=== PATIENT | female | born 1945 | race Caucasian/White ===

== ENCOUNTER 2018-06-28 07:30 | Inpatient (IN) | payer MEDICARE ==
--- NOTE | 2018-07-31 15:43 | HP ---
PREOPERATIVE HISTORY AND PHYSICAL: DATE OF ADMISSION: 08/02/18 PROVIDER: Dr. Ursula Black.* (DICTATED BY ROSA ISELA KONG) CHIEF COMPLAINT: Left knee pain. HISTORY OF PRESENT ILLNESS: Nely is a 72-year-old female, who has had greater than 6 months of increasingly worsening left knee pain. She has failed conservative treatment including antiinflammatories, activity modification, and physical therapy without relief of pain. She is interested in surgical intervention for correction of the problem at this point. PAST MEDICAL HISTORY: Hypertension, asthma, osteoarthritis, hypothyroidism, and depression. PAST SURGICAL HISTORY: Hysterectomy and right total knee arthroplasty. She reports no complications with anesthesia. CURRENT MEDICATIONS: 1. Metoprolol tartrate 50 mg 1-1/2 tabs p.o. q. day. 2. Levothyroxine 112 mcg p.o. q. day. 3. Lasix 20 mg 1 p.o. q. day p.r.n. edema. 4. Multivitamin daily. 5. Ventolin HFA as needed. ALLERGIES: MEPERIDINE, TALWIN, PHENERGAN, and ADHESIVE. FAMILY HISTORY: Positive for cancer. SOCIAL HISTORY: She is a retired nurse. She lives with her spouse. She has never smoked. She rarely consumes alcohol. She exercises sporadically. REVIEW OF SYSTEMS: A 14-point review of systems was discussed with the patient. Positive for seasonal allergies, urinary incontinence. All other systems were negative. PHYSICAL EXAMINATION GENERAL: She is a well-developed, well-nourished pleasant female, in no acute distress at rest. She is alert and oriented x3 with appropriate mood and affect. Gait: She ambulates with an antalgic gait favoring the left knee. She walks with slowed shortened steps. There are no obvious balance or coordination deficits. VITAL SIGNS: The patient is 5 feet 4.5 inches, 235 pounds. Blood pressure 142/ 72, pulse 66, respirations 16, and temperature 97.6. HEENT: Normocephalic, atraumatic. Her hearing and vision are grossly intact. NECK: Her trachea is midline. RESPIRATORY: Lungs are clear to auscultation bilaterally. No wheezes, rales, or rhonchi. CARDIOVASCULAR: Regular rate and rhythm. No murmurs, rubs, or gallops. Normal S1, S2. ABDOMEN: Soft, nondistended, nontender. Normal bowel sounds. EXTREMITIES: Left lower extremity, skin is intact without abrasions or open wounds. There are no palpable masses or lymph nodes. She has 2+ pitting edema to the lower leg. She has a hyizqyph-yk-tyalk joint effusion at the knee with tenderness at the medial joint line. She has 15 to 120 degrees of flexion. No varus or valgus instability. She has a varus alignment at the knee. There is no edema or varicosities or hyperreflexia distally. She has 5/5 ankle dorsiflexion and plantar flexion strength. Sensation to light touch is intact. She has a 2+ dorsalis pedis pulse. DIAGNOSTIC STUDIES: Imaging: Multiple views of the patient's left knee showed severe end-stage osteoarthritis with tricompartmental rade-wo-rcms contact. There is medial joint space, lateral joint space, and patellofemoral joint space narrowing with bone contact. There is subchondral sclerosis and osteophyte formation. IMPRESSION: Left knee osteoarthritis. PLAN: The patient is to undergo a left total knee arthroplasty by Dr. Black on 08/02/18. The risks, benefits, and postoperative course were discussed with the patient at length and she would like to proceed. We will use Oxinium for this patient, as she does have a METAL allergy. We will follow up with the patient in the postoperative phase. ROSA ISELA KONG [id number]/CPS #: [id number] MTDHong
[2018-08-01] MEDS ORDERED: Buffered Lidocaine 0.9% SYRIN* 5 ML/SYR SYRINGE INTRADERM ONE (15:55)
[2018-08-02] MEDS ORDERED: Tranexamic Acid 1,000 MG in NS 0.9% 50 ML* (outpatient use) IV SCH ×2
[2018-08-02] MEDS ORDERED: Acetaminophen TAB* 325 MG PO ONE (06:00)
[2018-08-02] MEDS ORDERED: celeCOXIB CAP* 100 MG PO ONE (06:00)
[2018-08-02] MEDS ORDERED: Gabapentin CAP(*) 300 MG PO ONE (06:00)
--- OUTSIDE RECORDS SUMMARY | 2018-08-02 06:33 | XMS REPORT ---
:1945 External Reference #:[id number] Author Organization [employer] Address [address] [place] [address] Phone [phone] Care Team Providers Name Role Phone Cathy Garcia MD Primary Care Physician Unavailable Payers Type Date Identification Numbers Payment Provider Subscriber Commercial Policy Number: [id number] [employer] Nely Vernon PayID: [id number] [address] [place] [address] Medigap Part B Expires: 2018 Policy Number: [facility] Nely Shay [id number] [facility] Saulo PayID: [id number] [address] [address] [place] [address] Problems Description No Information Family History Date Family Member(s) Problem(s) Comments General Diabetes General Heart Disease General Hypertension General Stroke General Cancer General Depression Father Depression Father due to Suicide () Mother Cancer Mother due to Cancer () First Brother Depression Social History Type Date Description Comments Marital Status Significant Other Lives With Male Partner Occupation Retired Cigarette Use Former Cigarette Smoker Cigars Never Smoked Cigars Pipe Never Smoked A Pipe Smokeless Tobacco Never Used Smokeless Tobacco ETOH Use Rarely consumes alcohol Smoking Patient is a former smoker Exercise Type/Frequency Exercises sporadically Allergies, Adverse Reactions, Alerts Date Description Reaction Status Severity Comments 04/30/2018 Demerol active 04/30/2018 Talwin active 04/30/2018 Phenergan active 04/30/2018 Adhesive active Medications Medication Date Status Form Strength Qnty SIG Indications Ordering Provider Metoprolol Active Tablets 50mg Take 1 And Unknown Tartrate 000 1/2 Tablets By Mouth One Time Daily Levothyroxine Active Tablets 100mcg 1 by mouth Unknown Sodium 000 every day Lasix Active Tablets 20mg 1 by mouth Unknown 000 every day as needed Multivitamin Active 1 tab Unknown 000 daily Vital Signs Date Vital Result Comment 07/03/2018 Height 64.5 inches 5'4.50" Weight 228.00 lb Heart Rate 80 /min BP Systolic Sitting 144 mmHg BP Diastolic Sitting 88 mmHg Respiratory Rate 20 /min Pain Level 0 BMI (Body Mass Index) 38.5 kg/m2 04/30/2018 Height 64.5 inches 5'4.50" Weight 235.00 lb Heart Rate 72 /min BP Systolic 124 mmHg BP Diastolic 74 mmHg BMI (Body Mass Index) 39.7 kg/m2 Results Description No Information Procedures Date CPT Code Description Status 03/31/2010 22010 Rad Exam; Both Knees, Standing Ap Completed 03/31/2010 20174 Rad Exam; Pelvis Completed Encounters Type Date Location Provider CPT E/M Dx Office Visit 04/30/2018 [facility] Ursula Black M.D. 17753 M25.562 2:00p [facility] [place] M17.12 M25.462 Office Visit 03/31/2010 3:00p [facility] [place] Tiwari M.D. 05625 755.63 CY[facility]anyMStone 716.96 724.4 Plan of Care Future Appointment(s):07/27/2018 8:30 am - Ursula Black M.D. at [facility] [place]08/02/2018 7:30 am - Ursula Black M.D. at [facility]
--- OUTSIDE RECORDS SUMMARY | 2018-08-02 06:33 | XMS REPORT ---
:1945 External Reference #:[id number] Author Organization [employer] Address [address] [place] [address] [place] [address] Phone [phone] Care Team Providers Name Role Phone Cathy Garcia MD Primary Care Physician Unavailable Payers Type Date Identification Numbers Payment Provider Subscriber Commercial Policy Number: [id number] [employer] Nely Vernon PayID: [id number] [address] [place] [address] Medigap Part B Expires: 2018 Policy Number: [facility] Nely Shay [id number] [facility] Vernon PayID: [id number] [address] [address] [place] [address] Problems Description No Information Family History Date [...] Form Strength Qnty SIG Indications Ordering Provider Commode Bedside 07/27/20 Active Misc 1units as needed Z47.1 Ursula 18 Kevon Black Z96.652 Erica Esqueda (Carlos) 07/27/2018 Active Z47.1 Ursula Black M.D. Z96.652 Metoprolol Tartrate Active Tablets 50mg Take 1 And 1/2 Unknown Tablets By Mouth One Time Daily Levothyroxine Sodium Active Tablets 112mcg 1 by mouth every Unknown day Lasix Active Tablets 20mg 1 by mouth every Unknown day as needed Multivitamin Active 1 tab daily Unknown Vital Signs Date Vital Result Comment 07/27/2018 Height 64.5 inches 5'4.50" Weight 229.00 lb Heart Rate 67 /min BP Systolic 142 mmHg BP Diastolic 72 mmHg Respiratory Rate 16 /min Body Temperature 97.6 F Pain Level 2 BMI (Body Mass Index) 38.7 kg/m2 07/03/2018 Height 64.5 inches 5'4.50" Weight 228.00 [...] Information Procedures Date CPT Code Description Status 07/03/2018 64072 Control Nasal Hemorrhage Anterior Completed 03/31/2010 17613 Rad Exam; Both Knees, Standing Ap Completed 03/31/2010 47381 Rad Exam; Pelvis Completed Encounters Type Date Location Provider CPT E/M Dx Office Visit 07/03/2018 [facility] [place], 70882 R04.0 3:00p [facility] [place] Office Visit 04/30/2018 [facility] Ursula Black M.D. 52930 M25.562 2:00p Of [facility] M17.12 M25.462 Office Visit 03/31/2010 3:00p [facility] [place] Tiwari M.D. 40391 755.63 C[facility] 716.96 724.4 Plan of Care Future Appointment(s):08/13/2018 2:30 pm - Ursula Black M.D. at [facility].08/02/2018 8:00 am - Nigel Harrell PA-C at [facility]A.08/02/2018 8:00 am - ROSA ISELA Berman at [facility]A.08/02/2018 8:00 am - Ursula Black M.D. at [facility]
[2018-08-02] MEDS ORDERED: Gabapentin CAP(*) 100 MG ONE (07:01)
[2018-08-02] MEDS ORDERED: celeCOXIB CAP* 100 MG ONE (07:02)
[2018-08-02] MEDS ORDERED: Acetaminophen TAB* 325 MG ONE (07:02)
[2018-08-02] MEDS ORDERED: ceFAZolin 2 GM in NS PREMIX(*) 2 GM/100 ML BAG IVPB ONE (07:04)
[2018-08-02] MEDS ORDERED: Tranexamic Acid 1,000 MG/10 ML SDV IV ONE (07:04)
[2018-08-02] MEDS ORDERED: ROPIVACAINE 5 MG/ML 30 ML BTL (0.5%) ONE ×2 (07:20→10:35)
[2018-08-02] MEDS ORDERED: Bupivacaine 0.5% SDV PF* 30ML VIAL ONE (07:20)
[2018-08-02] MEDS ORDERED: fentaNYL* 50 MCG/ML 2 ML VIAL (100 MCG VIAL) ONE (07:25)
[2018-08-02] MEDS ORDERED: Midazolam* 1 MG/ML 2 ML VIAL (2 MG) ONE ×2 (07:25)
[2018-08-02] MEDS ORDERED: Bupivacaine-MPF SPINAL* 7.5 MG/ML - 2ML AMP ONE (08:06)
[2018-08-02] MEDS ORDERED: Morphine PF AMP (0.5MG/ML)* 5 MG/10 ML AMP ONE (08:06)
[2018-08-02] MEDS ORDERED: Famotidine IV* 10 MG/ML 2 ML (20 mg) ONE (08:35)
[2018-08-02] MEDS ORDERED: Hetastarch 6% in NS* 500 ML IV ONE (08:35)
[2018-08-02] MEDS ORDERED: Naloxone* 0.4 MG/ML 1 ML VIAL IV PRN ×2 (09:45→09:47)
[2018-08-02] MEDS ORDERED: Levalbuterol 0.63MG/3ML NEB* UNIT OF USE INH PRN (09:45)
[2018-08-02] MEDS ORDERED: fentaNYL* 50 MCG/ML 2 ML VIAL (100 MCG VIAL) IV PRN (09:45)
[2018-08-02] MEDS ORDERED: DiMENhydriNATE IV* 50 MG/ML VIAL IV PUSH PRN (09:45)
[2018-08-02] MEDS ORDERED: PROCHLORPERAZINE INJ 5 MG/ML 2 ML VIAL IV PRN (09:47)
[2018-08-02] MEDS ORDERED: Scopolamine 1.5 mg* PATCH TRANSDERM PRN (09:47)
[2018-08-02] MEDS ORDERED: Ondansetron INJ* 2 MG/ML VIAL IV PRN (09:47)
[2018-08-02] MEDS ORDERED: Acetaminophen TAB* 325 MG PO PRN (09:47)
[2018-08-02] MEDS ORDERED: Nalbuphine* 10 MG/ML 1 ML VIAL IV PRN (09:47)
[2018-08-02] MEDS ORDERED: diPHENhydraMINE IV* 50 MG/ML 1 ml VIAL (BENADRYL) IV PRN (09:47)
[2018-08-02] MEDS ORDERED: Bisacodyl SUPP* 10 MG SUPP PR PRN (11:03)
[2018-08-02] MEDS ORDERED: Magnesium Hydroxide LIQ* 30 ML UDC PO PRN (11:03)
--- NOTE | 2018-08-02 12:06 | RAD ---
INDICATION: Status post total left knee replacement surgery. COMPARISON: Comparison is made with a prior study from April 30, 2018. TECHNIQUE: 2 views of the left knee were obtained. FINDINGS: The patient is status post total left knee replacement surgery. The bones and prostheses are in normal alignment. There is no evidence for loosening. IMPRESSION: STATUS POST TOTAL LEFT KNEE REPLACEMENT SURGERY.
[2018-08-02] MEDS: D5W 1/2 NS 1000 ML BAG* 1,000 ML IV SCH (13:56)
--- NOTE | 2018-08-02 15:39 | PN ---
Progress Note - Progress Note Date of Service: 08/02/18 SOAP: Subjective: [Pt doing well. states she has vomited some. Feels that she does not want any medicine for it at this time. Will ask if it should occur again. Otherwise pain is 0 currently. ] Objective: [A&O x3. +df/pf, NVI distally ] Assessment: [POD 0 - LTKA] Plan: [- PT/OT - Pain medicine available should she desire - Zofran is available should she desire]
[2018-08-02] MEDS: ceFAZolin 1 GM in Dextrose (*) 1 GM/50 ML BAG IVPB SCH ×2 (15:53→23:52)
[2018-08-02] MEDS ORDERED: Warfarin TAB(*) 6 MG PO ONE (17:00)
[2018-08-02] MEDS: Docusate CAP* 100 MG PO SCH (20:46)
[2018-08-02] MEDS: HYDROcodone/ACETAMIN 5-325 MG* 1 TAB PO PRN ×2 (20:46→23:50)
[2018-08-02] MEDS: Magnesium Hydroxide LIQ* 30 ML UDC PO SCH (20:46)
--- NOTE | 2018-08-02 21:10 | CONS ---
CONSULTATION REPORT: DATE OF CONSULT: 08/02/18 PROVIDER: Rachel Younger NP ATTENDING PHYSICIAN: Dr. Mendez (report dictated by Rachel Younger NP). PRIMARY CARE PROVIDER: Dr. Cathy Garcia. REFERRING PHYSICIAN: Dr. Black. REASON FOR CONSULT: Co-medical management post total left knee arthroplasty. HISTORY OF PRESENT ILLNESS: Ms. Vernon is a 72-year-old female with a past medical history of hypertension, asthma, osteoarthritis, hypothyroidism, depression, who underwent an elective left knee arthroplasty with Dr. Black today. [facility] was asked to co-medical manage for her comorbidities. The patient was seen and evaluated in the Postanesthesia Care Unit, where she was found to be alert and oriented x3, in no acute distress. Her partner and daughter are at the bedside. She currently offers no complaints and denies any pain. She reports she takes Lasix p.r.n. for lower extremity ankle edema, in which she reports her last dose was yesterday morning. She felt that her ankles were slightly more edematous yesterday and "wanted to get fluid off prior to surgery; therefore, she took 1 dose of Lasix. She denies a history of congestive heart failure in the past. She reports that she takes metoprolol for her hypertension and has been on this for quite sometime. She does report at home, she notes that her resting heart rate can frequently be in the low 60s. Currently, she denies any pain, fever, chills, nausea, abdominal pain. PAST MEDICAL HISTORY: 1. Hypertension. 2. Asthma. 3. Osteoarthritis. 4. Hypothyroidism. 5. Depression. PAST SURGICAL HISTORY: 1. Hysterectomy. 2. Right total knee arthroplasty. MEDICATIONS: Home medications: 1. Metoprolol tartrate 75 mg p.o. q.p.m. 2. Synthroid 112 mcg p.o. q. day. 3. Lasix 20 mg p.o. daily p.r.n. lower extremity edema. 4. Multivitamin daily. 5. Ventolin HFA p.r.n. Current medications reviewed and appreciated. ALLERGIES: HALAVEN, PHENERGAN, ADHESIVE, and MEPERIDINE. FAMILY HISTORY: Positive for cancer. SOCIAL HISTORY: Denies history of tobacco abuse. Rare alcohol use. 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 She lists her spouse and daughter are her healthcare proxy. REVIEW OF SYSTEMS: A 14-point review of systems was performed. All the pertinent positives and negatives are mentioned in the history of present illness. Otherwise are negative. PHYSICAL EXAM: Vital Signs: Temperature 97.2, heart rate 52, respirations 16, O2 sat 97% on 2 liters nasal cannula, blood pressure 132/79. General Appearance : A 72-year-old female, lying in the PACU bed, alert and oriented x3, in no acute distress, good historian, very pleasant. HEENT: Head is normocephalic, atraumatic. Pupils are equal and reactive to light. Oropharynx is clear. Dry mucous membranes. Neck is supple. Cardiac: S1 and S2. Regular rate and rhythm. No murmur, rub, or gallop appreciated. 1+ pedal ankle edema noted bilaterally. Lungs: Clear to auscultation bilaterally. Good aeration throughout . Abdomen: Obese, soft, nontender, nondistended. Normal bowel sounds throughout. Extremities: Left lower extremity knee is with dressing and Lauro bandage with Cryo unit intact. 2+ DP pulses bilaterally. Neuro: Alert and oriented x3. Sensation to lower extremities is intact to light touch. No focal deficits noted. Speech is clear. Strength: Upper extremity strength is 5/5 and symmetric. ASSESSMENT AND PLAN: Ms. Vernon is a 72-year-old female with a past medical history of osteoarthritis, hypertension, asthma, hypothyroidism, and depression , who underwent a left total knee arthroplasty today with Dr. Black. Hospital Medicine was asked to co-medical manage. 1. Status post left knee arthroplasty. Disposition per Ortho team. 2. Hypertension. Plan to hold metoprolol at this time due to heart rate is in the 50s. This could be secondary to anesthesia; however, the patient does report she notes a low heart rate at home and she battles fatigue and is possible a beta- bill may not be the most appropriate medication for her. Her blood pressure is currently stable. We will add on hydralazine p.r.n. for now. Heart rate should be continued to be monitored and a decision should be made if she should be discharged home on her beta-bill. 3. Lower extremity edema. The patient's last dose of Lasix was yesterday. She was noted to have 1 to 2+ pedal and ankle edema. We will hold Lasix in the postoperative phase and this should be reevaluated tomorrow. 4. Hypothyroidism. Continue Synthroid 112 mcg p.o. daily. 5. Asthma. No signs of acute exacerbation, appears to be stable. Albuterol nebulizers p.r.n. for shortness of breath/wheezing. 6. DVT prophylaxis per Ortho team. Lovenox 40 mg subcu q.24 hours with initiation of Coumadin, which the patient will be discharged home on. 7. Code status. Full code. TIME SPENT: Approximately 30 minutes was spent on this consultation. RACHEL YOUNGER, KAREN [id number]/CPS #: [id number] GORDON
[2018-08-03] MEDS ORDERED: Morphine INJ* 2 MG/ML 1 ML SYRINGE (TWO MG - NEW SYRINGE VERSION) IV PRN (00:22)
[2018-08-03] MEDS ORDERED: oxyCODONE/Acetamin 5/325 MG* TAB PO PRN (00:22)
[2018-08-03] MEDS ORDERED: diPHENhydraMINE IV* 50 MG/ML 1 ml VIAL (BENADRYL) IV PRN (01:47)
[2018-08-03] MEDS ORDERED: Ondansetron INJ* 2 MG/ML VIAL IV PRN (01:47)
[2018-08-03] MEDS: Acetaminophen TAB* 325 MG PO SCH ×3 (02:10→17:06)
[2018-08-03] MEDS: D5W 1/2 NS 1000 ML BAG* 1,000 ML IV SCH (03:39)
[2018-08-03] MEDS: Levothyroxine TAB* 112 MCG TAB PO SCH (05:19)
[2018-08-03] MEDS: oxyCODONE/Acetamin 5/325 MG* TAB PO PRN ×3 (05:19→23:53)
[2018-08-03 06:11] LABS: Hematocrit 34 % (35-47); Hemoglobin 11.6 g/dl (12.0-16.0); Mean Platelet Volume 10.4 um3 (7.4-10.4); Platelet Count 123 10^3/ul (150-450)
[2018-08-03 06:18] LABS: INR 1.29 (0.77-1.02)
[2018-08-03 06:32] LABS: EGFR Non-African American 69.3 (>60)
[2018-08-03] MEDS: Magnesium Hydroxide LIQ* 30 ML UDC PO SCH ×2 (07:12→21:31)
[2018-08-03] MEDS: Vitamin THERAPEUTIC TAB PO SCH (07:15)
[2018-08-03] MEDS: oxyCODONE TAB* 5 MG TAB PO PRN ×3 (07:15→21:31)
[2018-08-03] MEDS: Docusate CAP* 100 MG PO SCH ×2 (07:15→21:31)
--- NOTE | 2018-08-03 08:33 | OP ---
DATE OF OPERATION: 08/02/18 - ROOM #349 DATE OF : 43. SURGEON: Ursula Black MD. LAMINATE FLOOR INSTALLER: ROSA ISELA Moya. Mr. Harrell did help throughout the procedure with preparation of the leg, wound retraction, manipulation of the knee, and wound closure. ANESTHESIOLOGIST: Dr. Araya ANESTHESIA: Spinal. PRE-OP DIAGNOSIS: Severe end-stage degenerative osteoarthritis of the left knee joint. POST-OP DIAGNOSIS: Severe end-stage degenerative osteoarthritis of the left knee joint. OPERATIVE PROCEDURE: Left total knee arthroplasty. TOURNIQUET TIME: 52 minutes. ESTIMATED BLOOD LOSS: 200 cc. SPECIMENS: Bone and cartilage from the left knee joint sent to pathology. COMPLICATIONS: None. HARDWARE USED: This is cemented total knee arthroplasty hardware from [employer]. Two packages of Simplex bone cement. For the femur, a left narrow size 5 femoral component Legion. For the tibia, a left size 4 Nikki II tibial baseplate. For the insert, a 9-mm posterior stabilized articular insert size 3/4. And for the patella, a 32-mm 3-peg all poly patella with 7.5 thickness. BRIEF HISTORY/INDICATIONS: Ms. Vernon is a 72-year-old female with years of increasingly severe left knee pain. Antiinflammatories, intraarticular injections, and physical therapy failed to relieve her pain. Radiographs showed naco-uv-aipo arthritis. Due to continued pain and decreased quality of life, she elected to undergo left total knee arthroplasty. Informed consent was obtained from the patient. She understood the risks of surgery included but were not limited to, bleeding, infection, damage to nearby structures, continued pain, need for further surgery, intraoperative fracture, nerve palsy, hardware failure or loosening, knee stiffness, loss of motion, stroke, heart attack, blood clot, and . She wished to proceed. INTRAOPERATIVE FINDINGS: Intraoperatively, the patient was noted to have severe end-stage arthritis with complete loss of cartilage in the medial patellar femoral compartments. DESCRIPTION OF PROCEDURE: Ms. Vernon was identified in the preanesthesia unit. Her left lower extremity was marked as the correct operative side. Informed consent was signed and placed in the chart. The patient was taken to the operating room and placed under spinal anesthesia. A Chappell catheter was placed. Tourniquet was placed on the left thigh. Left lower extremity was prepped and draped in the usual sterile fashion. Preop time-out was made to correctly identify the patient's side and site. Appropriate perioperative antibiotics were given within one hour of incision. Tourniquet was inflated and total tourniquet time for this procedure was 52 minutes. A midline incision was made with a #10 blade and carried down to the extensor mechanism. A #10 blade was used to make a standard medial parapatellar arthrotomy and patella was subluxed laterally. Electrocautery was used to subperiosteally elevate soft tissue off the superomedial tibia to the mid sagittal plane. The knee was flexed up. The anterior horn of the lateral meniscus and ACL were sharply removed. A drill was used to enter the distal femur. Intramedullary distal femoral cutting erick was placed and pinned on the distal femur. Distal femoral cut was made with an oscillating saw. Next, the external rotation guide was pinned on the distal femur. Distal femur was sized to a size 5. Size 5 multi-cutting jig was pinned on the distal femur. Oscillating saw was used to make the appropriate four chamfer cuts. The PCL was completely released and the tibia was subluxed anteriorly. Extramedullary tibial cutting guide was pinned on the proximal tibia. Oscillating saw was used to make the proximal tibial cut perpendicular to the mechanical axis of the tibia. The bone was carefully removed. The knee was brought out into full extension. The spacer block had good fit with the knee in full extension. There was good medial and lateral ligamentous balancing. Flexion and extension gaps were well balanced. The knee was flexed up. A lamina spreader box operator was placed both medially and laterally. Any remaining meniscus was carefully removed using electrocautery. Curved osteotome was used to remove any posterior osteophytes. Tibial tray and drop erick were placed, and confirmed a satisfactory tibial cut. A left size 5 narrow femoral component was impacted onto the distal femur. This had excellent fit and stability. The box for the posterior stabilized implant was prepared using a reamer and box cut osteotome. Size 4 tibial tray trial with a 9 mm insert trial was placed and the knee taken through a range of motion. The knee had full extension to 130 degrees of flexion. There was satisfactory patellofemoral tracking. The patella was everted. 7 mm of patellar bone and cartilage were carefully removed using an oscillating saw. Patella was sized to a size 32. Three peg holes were drilled to the size 32 guide. A 32 trial patella with 7.5 thickness was placed and the knee was taken through a range of motion. There was satisfactory patellofemoral tracking. All trials were carefully removed. The tibia was subluxed anteriorly and sized to a size 4. Proximal tibia was prepared using a size 4 keel punch. All bony cut surfaces were copiously irrigated with sterile saline and dried. Final implants were cemented into place starting with the tibia, followed by the femur , and lastly the patella. A 9 mm insert trial was placed and the knee was brought out into full extension. Tourniquet was turned down at 52 minutes. Electrocautery was used to obtain meticulous hemostasis. The knee was copiously irrigated with sterile saline. Once the cement had fully cured, the insert trial was removed. Any excess cement was removed from around the implants and hardware. Final insert chosen was a 9 mm posterior stabilized articular insert size 3/4. The insert was locked into position on the tibial tray. The insert was checked and rechecked, and noted to be stable. The knee was once again copiously irrigated with sterile saline. The extensor mechanism was closed using interrupted #1 Vicryl. The rest of the incision was closed in a layered fashion using 0 and 2-0 Vicryl. Skin was closed using running 3-0 nylon suture. Sterile Xeroform, 4x4's, and Webril were used to cover the incision. Lauro wrap and cold pack were placed over this. The patient' s anesthesia was reversed without difficulty. She was taken to the PACU in stable condition. Intended weightbearing will be weightbearing as tolerated. Intended DVT prophylaxis will be Coumadin with a Lovenox bridge. [id number]/[facility] #: [id number] [facility]
[2018-08-03] MEDS: ceFAZolin 1 GM in Dextrose (*) 1 GM/50 ML BAG IVPB SCH (09:09)
[2018-08-03] MEDS: Metoprolol Tartrate TAB* 25 MG PO SCH ×2 (09:09→21:31)
[2018-08-03] MEDS: Enoxaparin(*) 40 MG/0.4 ML SYR SUBCUT SCH (12:05)
[2018-08-03] MEDS ORDERED: Furosemide TAB* 20 MG PO PRN (12:09)
--- NOTE | 2018-08-03 14:20 | PN ---
Subjective Date of Service: 08/03/18 Interval History: Patient is in mild pain which does not get exacerbated significantly by walking. Patient denies dizziness, CP, SOB, N/V, abdominal pain, diarrhea, obstipation, dysuria, or other pain. Patient denies orthostatic dizziness. Patient is feeling generally very well. Family History: Unchanged from Admission Social History: Unchanged from Admission Past Medical History: Unchanged from Admission Objective Active Medications: Acetaminophen (Tylenol Tab*) 650 mg PO Q8H [facility] Last Admin: 08/03/18 10:23 Dose: 650 mg Bisacodyl (Dulcolax Supp*) 10 mg [place] DAILY PRN PRN Reason: constipation Diphenhydramine HCl (Benadryl Iv*) 25 mg IV Q6H PRN PRN Reason: itching Docusate Sodium (Colace Cap*) 100 mg PO BID [facility] Last Admin: 08/03/18 07:15 Dose: 100 mg Enoxaparin Sodium (Lovenox(*)) 40 mg SUBCUT Q24H [facility] Last Admin: 08/03/18 12:05 Dose: 40 mg Furosemide (Lasix Tab*) 20 mg PO QAM PRN PRN Reason: ankle edema Dextrose/Sodium Chloride (D5w 1/2 Ns 1000 Ml Bag*) 1,000 mls @ 75 mls/hr IV PER RATE [facility] Last Admin: 08/03/18 03:39 Dose: 75 mls/hr Lactulose (Lactulose*) 30 ml PO Q6H PRN PRN Reason: constipation Levothyroxine Sodium (Synthroid Tab*) 112 mcg PO 0600 [facility] Last Admin: 08/03/18 05:19 Dose: 112 mcg Magnesium Hydroxide (Milk Of Magnesia Liq*) 30 ml PO BID [facility] Last Admin: 08/03/18 07:12 Dose: Not Given Magnesium Hydroxide (Milk Of Magnesia Liq*) 30 ml PO Q6H PRN PRN Reason: constipation Metoprolol Succinate (Toprol Xl Tab*) 75 mg PO DAILY [facility] Metoprolol Tartrate (Lopressor Tab*) 25 mg PO BID [facility] Stop: 08/03/18 21:01 Last Admin: 08/03/18 09:09 Dose: 25 mg Morphine Sulfate (Morphine Inj ((Syringe))*) 2 mg IV Q2H PRN PRN Reason: PAIN - SEVERE Last Admin: 08/03/18 12:40 Dose: 2 mg Multivitamins (Theragran Tab*) 1 tab PO DAILY [facility] Last Admin: 08/03/18 07:15 Dose: 1 tab Ondansetron HCl (Zofran Inj*) 4 mg IV Q6H PRN PRN Reason: nausea Oxycodone HCl (Roxycodone Tab*) 10 mg PO Q4H PRN PRN Reason: PAIN - SEVERE Last Admin: 08/03/18 11:12 Dose: 10 mg Oxycodone/Acetaminophen (Percocet 5/325 Tab*) 1 tab PO Q4H PRN PRN Reason: PAIN Last Admin: 08/03/18 05:19 Dose: 1 tab Oxycodone/Acetaminophen (Percocet 5/325 Tab*) 2 tab PO Q4H PRN PRN Reason: PAIN Pharmacy Profile Note (Scopolamine Patch Remove*) 1 note PATCH OFF .AFTER 72 HOURS PRN PRN Reason: nausea Scopolamine (Transderm-Scop 1.5 Mg Patch*) 1 patch TRANSDERM Q72H PRN PRN Reason: nausea Vital Signs - 8 hr 08/03/18 08/03/18 08/03/18 07:15 07:28 11:12 Temperature 98.2 F Pulse Rate 72 Respiratory 14 16 16 Rate Blood Pressure 123/52 (mmHg) O2 Sat by Pulse 94 Oximetry 08/03/18 12:40 Temperature Pulse Rate Respiratory 16 Rate Blood Pressure (mmHg) O2 Sat by Pulse Oximetry Oxygen Devices in Use Now: Nasal Cannula Appearance: Patient is a 72yo female who appears stated age and is sitting in the bed in [facility]. Eyes: No Scleral Icterus, PERRLA Ears/Nose/Mouth/Throat: NL Teeth, Lips, Gums, Clear Oropharnyx, Mucous Membranes Moist Neck: NL Appearance and Movements; NL JVP Respiratory: Symmetrical Chest Expansion and Respiratory Effort, Clear to Auscultation Cardiovascular: NL Sounds; No Murmurs; No JVD, RRR, No Edema, - - Ectopic Beats Abdominal: NL Sounds; No Tenderness; No Distention, No Hepatosplenomegaly Lymphatic: No Cervical Adenopathy Extremities: No Edema, No Clubbing, Cyanosis Skin: No Nodules or Sclerosis, - - Left hip incision covered with bulky dressing. Neurological: Alert and Oriented x 3, NL Sensation, NL Muscle Strength and Tone , - - CN II-XII intact. Result Diagrams: 08/03/18 05:31 08/03/18 05:31 Assess/Plan/Problems-Billing Assessment: Patient is a 72yo female with a PMH for HTN, OA who is S/P LTKA and is doing well. Patient had post-operative bradycardia which has resolved. - Patient Problems (1) Post-operative state Current Visit: Yes Status: Acute Code(s): Z98.890 - OTHER SPECIFIED POSTPROCEDURAL STATES SNOMED Code(s): 56509844 Comment: - Management per primary team. - H/H decreased to an expected degree. - Pain management, Bowel Regimen (2) HTN (hypertension) Current Visit: Yes Status: Acute Code(s): I10 - ESSENTIAL (PRIMARY) HYPERTENSION SNOMED Code(s): 30101274 Comment: - Hypertensive postoperative. - Resume metprolol at lower dose today and then resume home dose tomorrow. (3) Bradycardia Current Visit: Yes Status: Acute Code(s): R00.1 - BRADYCARDIA, UNSPECIFIED SNOMED Code(s): 72485408 Comment: - Post-operative. Resolved. Resume metoprolol (4) Asthma Current Visit: Yes Status: Acute Code(s): J45.909 - UNSPECIFIED ASTHMA, UNCOMPLICATED SNOMED Code(s): 341236459 Comment: - Not in acute exacerbation - Continue inhalers PRN (5) Hypothyroidism Current Visit: Yes Status: Acute Code(s): E03.9 - HYPOTHYROIDISM, UNSPECIFIED SNOMED Code(s): 93845876 Comment: - Continue Synthroid (6) Depression Current Visit: Yes Status: Acute Code(s): F32.9 - MAJOR DEPRESSIVE DISORDER , SINGLE EPISODE, UNSPECIFIED SNOMED Code(s): 64666321 Comment: - Euthymic, on no medications - Supportive care (7) DVT prophylaxis Current Visit: Yes Status: Acute Code(s): SXU4251 - SNOMED Code(s): 118881047 Comment: - Lovenox to Coumadin per primary team. (8) Full code status Current Visit: Yes Status: Acute Code(s): Z78.9 - OTHER SPECIFIED HEALTH STATUS SNOMED Code(s): 713075669 Status and Disposition: Inpatient.
[2018-08-03] MEDS ORDERED: Albuterol 2.5 MG/3 ML NEB.SOL* (0.083%) INH PRN (14:26)
--- NOTE | 2018-08-03 14:50 | PN ---
Progress Note - Progress Note Date of Service: 08/03/18 SOAP: Subjective: [Pt was seen today sitting up in chair. Pt states that she is doing very well. She had nausea and vomiting from anesthesia as she expected but these has since passed. She states her pain is well controlled. Denies any chest pain, SOB, nausea or vomiting. ] Objective: [General: A&Ox3, NAD. MSK, LLE: Dressing is c/d/i without surrounding erythema. +df/pf. Calf is soft and non tender. The pts distal extremity is swollen with 2+ pitting edema. PT pulse is 1+ but cap refill of all digits are less than 2 seconds. She is NVI distally. ] Assessment: [POD 1 LTKA ] Plan: [- PT/OT - Continue with GUILLERMO wrap of lower extremity. - Continue with SCDs - Continue with current pain medication - Possible DC on Sun to [facility] monday with [place] [facility]. - INR of 1.29 - Lovenox today, Warfarin of 8mg tonight ]
[2018-08-03] MEDS ORDERED: Warfarin TAB(*) 4 MG PO SCH (17:00)
[2018-08-04] MEDS: oxyCODONE TAB* 5 MG TAB PO PRN ×2 (02:44→08:33)
[2018-08-04] MEDS: Acetaminophen TAB* 325 MG PO SCH ×4 (03:03→18:19)
[2018-08-04] MEDS: oxyCODONE/Acetamin 5/325 MG* TAB PO PRN (06:00)
[2018-08-04] MEDS: Levothyroxine TAB* 112 MCG TAB PO SCH (06:00)
[2018-08-04 06:50] LABS: Hematocrit 33 % (35-47); Mean Platelet Volume 10.7 um3 (7.4-10.4); Platelet Count 128 10^3/ul (150-450)
[2018-08-04 07:05] LABS: EGFR Non-African American 67.4 (>60)
[2018-08-04 07:07] LABS: INR 3.63 (0.77-1.02)
[2018-08-04] MEDS: Magnesium Hydroxide LIQ* 30 ML UDC PO SCH ×2 (08:32→20:35)
[2018-08-04] MEDS: Docusate CAP* 100 MG PO SCH ×2 (08:33→20:33)
[2018-08-04] MEDS: Metoprolol Succinate XL TAB* 50 MG PO SCH (08:33)
[2018-08-04] MEDS: Vitamin THERAPEUTIC TAB PO SCH (08:33)
[2018-08-04] MEDS: Enoxaparin(*) 40 MG/0.4 ML SYR SUBCUT SCH (11:43)
--- NOTE | 2018-08-04 12:54 | PN ---
Progress Note - Progress Note Date of Service: 08/04/18 SOAP: Subjective: Pt was seen today sitting up in chair. Pt states that she is doing very well. She states her pain is well controlled. Denies any chest pain, SOB, nausea or vomiting. ] Objective: [General: A&Ox3, NAD. MSK, LLE: Dressing is c/d/i without surrounding erythema. +df/pf. Calf is soft and non tender. The pts distal extremity is swollen with 2+ pitting edema. PT pulse is 1+ but cap refill of all digits are less than 2 seconds. She is NVI distally. ] Assessment: [POD 2 LTKA ] Plan: [- PT/OT - Continue with GUILLERMO wrap of lower extremity. - Continue with SCDs - Continue with current pain medication - Possible DC on Sun to [facility] monday with [facility]. - INR of 3.63 - Lovenox today, hold Warfarin tonight ]
--- NOTE | 2018-08-04 15:34 | PN ---
Subjective Date of Service: 08/04/18 Interval History: Adequate pain control. Appetite OK. No BM yet. SHe states she bent her L knee 85 degrees today. Family History: Unchanged from Admission Social History: Unchanged from Admission Past Medical History: Unchanged from Admission Objective Active Medications: Acetaminophen (Tylenol Tab*) 650 mg PO Q8H [facility] Last Admin: 08/04/18 11:47 Dose: 650 mg Albuterol (Ventolin 2.5 Mg/3 Ml Neb.Valerie*) 2.5 mg INH Q4H PRN PRN Reason: SOB/WHEEZING Bisacodyl (Dulcolax Supp*) 10 mg [place] DAILY PRN PRN Reason: constipation Diphenhydramine HCl (Benadryl Iv*) 25 mg IV Q6H PRN PRN Reason: itching Last Admin: 08/03/18 15:28 Dose: 25 mg Docusate Sodium (Colace Cap*) 100 mg PO BID [facility] Last Admin: 08/04/18 08:33 Dose: 100 mg Enoxaparin Sodium (Lovenox(*)) 40 mg SUBCUT Q24H [facility] Last Admin: 08/04/18 11:43 Dose: 40 mg Furosemide (Lasix Tab*) 20 mg PO QAM PRN PRN Reason: ankle edema Dextrose/Sodium Chloride (D5w 1/2 Ns 1000 Ml Bag*) 1,000 mls @ 75 mls/hr IV PER RATE [facility] Last Admin: 08/03/18 03:39 Dose: 75 mls/hr Lactulose (Lactulose*) 30 ml PO Q6H PRN PRN Reason: constipation Last Admin: 08/04/18 14:58 Dose: 30 ml Levothyroxine Sodium (Synthroid Tab*) 112 mcg PO 0600 [facility] Last Admin: 08/04/18 06:00 Dose: 112 mcg Magnesium Hydroxide (Milk Of Magnesia Liq*) 30 ml PO BID [facility] Last Admin: 08/04/18 08:32 Dose: 30 ml Magnesium Hydroxide (Milk Of Magnesia Liq*) 30 ml PO Q6H PRN PRN Reason: constipation Metoprolol Succinate (Toprol Xl Tab*) 75 mg PO DAILY [facility] Last Admin: 08/04/18 08:33 Dose: 75 mg Morphine Sulfate (Morphine Inj ((Syringe))*) 2 mg IV Q2H PRN PRN Reason: PAIN - SEVERE Last Admin: 08/03/18 12:40 Dose: 2 mg Multivitamins (Theragran Tab*) 1 tab PO DAILY [facility] Last Admin: 08/04/18 08:33 Dose: 1 tab Ondansetron HCl (Zofran Inj*) 4 mg IV Q6H PRN PRN Reason: nausea Oxycodone HCl (Roxycodone Tab*) 10 mg PO Q4H PRN PRN Reason: PAIN - SEVERE Last Admin: 08/04/18 08:33 Dose: 10 mg Oxycodone/Acetaminophen (Percocet 5/325 Tab*) 1 tab PO Q4H PRN PRN Reason: PAIN Last Admin: 08/04/18 06:00 Dose: 1 tab Oxycodone/Acetaminophen (Percocet 5/325 Tab*) 2 tab PO Q4H PRN PRN Reason: PAIN Pharmacy Profile Note (Scopolamine Patch Remove*) 1 note PATCH OFF .AFTER 72 HOURS PRN PRN Reason: nausea Polyethylene Glycol/Electrolytes (Miralax*) 17 gm PO 0800,2100 [facility] Polyethylene Glycol/Electrolytes (Miralax*) 34 gm PO ONCE ONE Stop: 08/04/18 15:41 Scopolamine (Transderm-Scop 1.5 Mg Patch*) 1 patch TRANSDERM Q72H PRN PRN Reason: nausea Vital Signs - 8 hr 08/04/18 08/04/18 08/04/18 07:45 08:00 08:14 Temperature 98.6 F Pulse Rate 69 Respiratory 18 16 18 Rate Blood Pressure 149/59 (mmHg) O2 Sat by Pulse 98 88 Oximetry 08/04/18 08/04/18 08/04/18 08:29 08:30 08:33 Temperature Pulse Rate Respiratory 18 18 Rate Blood Pressure (mmHg) O2 Sat by Pulse 98 Oximetry 08/04/18 08/04/18 11:42 12:00 Temperature 98.0 F Pulse Rate 63 Respiratory 18 18 Rate Blood Pressure 157/70 (mmHg) O2 Sat by Pulse 91 Oximetry Oxygen Devices in Use Now: Nasal Cannula Appearance: Alert, partly up in bed. In good spirits. Looks comfortable. Eyes: No Scleral Icterus Respiratory: Symmetrical Chest Expansion and Respiratory Effort, Clear to Auscultation, Clear to Percussion Cardiovascular: NL Sounds; No Murmurs; No JVD, RRR, No Edema, - Extremities: No Edema, No Clubbing, Cyanosis, - - L knee bandaged and in cooling device. Skin: No Rash or Ulcers, No Nodules or Sclerosis, - Neurological: Alert and Oriented x 3, NL Sensation Result Diagrams: 08/04/18 06:02 08/04/18 06:02 Assess/Plan/Problems-Billing Assessment: Patient is a 72yo female with a PMH for HTN, OA who is S/P LTKA and is doing well. Patient had post-operative bradycardia which has resolved. - Patient Problems (1) HTN (hypertension) Current Visit: Yes Status: Acute Code(s): I10 - ESSENTIAL (PRIMARY) HYPERTENSION SNOMED Code(s): 11146594 Comment: Continue metprolol at home dose. (2) Hypothyroidism Current Visit: Yes Status: Acute Code(s): E03.9 - HYPOTHYROIDISM, UNSPECIFIED SNOMED Code(s): 19272941 Comment: - Continue Synthroid (3) Post-operative state Current Visit: Yes Status: Acute Code(s): Z98.890 - OTHER SPECIFIED POSTPROCEDURAL STATES SNOMED Code(s): 32844683 Comment: - Management per primary team. - H/H decreased to an expected degree. Received 30 ml lactulose 08/04, will give PEG 34 gm /15 and start 17 gm bid. Conisder 300 ml mag citrate 9.16 if no BM. Status and Disposition: Inpatient.
[2018-08-04] MEDS ORDERED: Polyethylene Glycol 3350* 17 GM PACKET PO ONE (15:40)
[2018-08-04] MEDS: Polyethylene Glycol 3350* 17 GM PACKET PO SCH (20:35)
[2018-08-05] MEDS ORDERED: hydrALAZINE IV* 20 MG/ML VIAL IV SLOW PU ONE (02:00)
[2018-08-05] MEDS: Acetaminophen TAB* 325 MG PO SCH ×4 (02:39→23:36)
[2018-08-05 05:40] LABS: Hematocrit 31 % (35-47); Hemoglobin 10.8 g/dl (12.0-16.0); Mean Platelet Volume 10.4 um3 (7.4-10.4); Platelet Count 136 10^3/ul (150-450)
[2018-08-05 05:48] LABS: INR 4.28 (0.77-1.02)
[2018-08-05] MEDS: Levothyroxine TAB* 112 MCG TAB PO SCH (05:52)
[2018-08-05] MEDS: Magnesium Hydroxide LIQ* 30 ML UDC PO SCH ×2 (07:50→20:43)
[2018-08-05] MEDS: Polyethylene Glycol 3350* 17 GM PACKET PO SCH (07:50)
[2018-08-05] MEDS: Vitamin THERAPEUTIC TAB PO SCH (07:52)
[2018-08-05] MEDS: Metoprolol Succinate XL TAB* 50 MG PO SCH (07:53)
[2018-08-05] MEDS: Docusate CAP* 100 MG PO SCH ×2 (07:53→20:43)
[2018-08-05] MEDS: oxyCODONE/Acetamin 5/325 MG* TAB PO PRN (07:53)
[2018-08-05] MEDS ORDERED: Scopolamine PATCH Remove* 1 NOTE MISC PATCH OFF PRN (09:49)
--- NOTE | 2018-08-05 10:26 | PN ---
Progress Note - Progress Note Date of Service: 08/05/18 SOAP: Subjective: [Pt was seen today sitting up in chair. Pt states that she is doing very well. She states her pain is well controlled. Denies any chest pain, SOB, nausea or vomiting. ] Objective: [General: A&Ox3, NAD. MSK, LLE: Dressing is c/d/i without surrounding erythema. +df/pf. Calf is soft and non tender. The pts distal extremity is swollen with 2+ pitting edema. PT pulse is 1+ but cap refill of all digits are less than 2 seconds. She is NVI distally. Dressing was changed by me. Incision is c/d/i without drainage. ] Vital Signs Temp 98.0 F 08/05/18 04:22 Pulse 67 08/05/18 04:22 Resp 18 08/05/18 10:12 BP 163/55 08/05/18 08:18 Pulse Ox 95 08/05/18 10:13 Intake & Output 08/04/18 08/05/18 08/05/18 18:59 06:59 18:59 Intake Total 720 700 Output Total 550 Balance 720 150 Intake: Oral 720 700 Output: Urine 550 Other: Estimated Void Medium Large Medium # Bowel Movements 1 0 Estimated Stool Amount Large Medium # Voids 2 2 2 Assessment: [POD 3 LTKA ] Plan: [- PT/OT - Continue with GUILLERMO wrap of lower extremity. - Continue with current pain medication - Possible DC tomorrow to [facility] . - INR of 4.28 - DC Lovenox, hold Warfarin tonight
[2018-08-05] MEDS ORDERED: Polyethylene Glycol 3350* 17 GM PACKET PO PRN (10:49)
[2018-08-05] MEDS: amLODIPine TAB* 5 MG PO SCH (10:54)
--- NOTE | 2018-08-05 10:54 | PN ---
Subjective Date of Service: 08/05/18 Interval History: Several BM's since my last visit. Pain improved. No new c/o. Family History: Unchanged from Admission Social History: Unchanged from Admission Past Medical History: Unchanged from Admission Objective Active Medications: Acetaminophen (Tylenol Tab*) 650 mg PO Q8H [facility] Last Admin: 08/05/18 10:13 Dose: Not Given Albuterol (Ventolin 2.5 Mg/3 Ml Neb.Valerie*) 2.5 mg INH Q4H PRN PRN Reason: SOB/WHEEZING Amlodipine Besylate (Norvasc Tab*) 5 mg PO DAILY [facility] Bisacodyl (Dulcolax Supp*) 10 mg [place] DAILY PRN PRN Reason: constipation Diphenhydramine HCl (Benadryl Iv*) 25 mg IV Q6H PRN PRN Reason: itching Last Admin: 08/03/18 15:28 Dose: 25 mg Docusate Sodium (Colace Cap*) 100 mg PO BID [facility] Last Admin: 08/05/18 07:53 Dose: 100 mg Furosemide (Lasix Tab*) 20 mg PO QAM PRN PRN Reason: ankle edema Lactulose (Lactulose*) 30 ml PO Q6H PRN PRN Reason: constipation Last Admin: 08/04/18 14:58 Dose: 30 ml Levothyroxine Sodium (Synthroid Tab*) 112 mcg PO 0600 [facility] Last Admin: 08/05/18 05:52 Dose: 112 mcg Magnesium Hydroxide (Milk Of Magnesia Liq*) 30 ml PO BID [facility] Last Admin: 08/05/18 07:50 Dose: Not Given Magnesium Hydroxide (Milk Of Magnesia Liq*) 30 ml PO Q6H PRN PRN Reason: constipation Metoprolol Succinate (Toprol Xl Tab*) 75 mg PO DAILY [facility] Last Admin: 08/05/18 07:53 Dose: 75 mg Morphine Sulfate (Morphine Inj ((Syringe))*) 2 mg IV Q2H PRN PRN Reason: PAIN - SEVERE Last Admin: 08/03/18 12:40 Dose: 2 mg Multivitamins (Theragran Tab*) 1 tab PO DAILY [facility] Last Admin: 08/05/18 07:52 Dose: 1 tab Ondansetron HCl (Zofran Inj*) 4 mg IV Q6H PRN PRN Reason: nausea Oxycodone HCl (Roxycodone Tab*) 10 mg PO Q4H PRN PRN Reason: PAIN - SEVERE Last Admin: 08/04/18 08:33 Dose: 10 mg Oxycodone/Acetaminophen (Percocet 5/325 Tab*) 1 tab PO Q4H PRN PRN Reason: PAIN Last Admin: 08/05/18 07:53 Dose: 1 tab Oxycodone/Acetaminophen (Percocet 5/325 Tab*) 2 tab PO Q4H PRN PRN Reason: PAIN Pharmacy Profile Note (Scopolamine Patch Remove*) 1 note PATCH OFF .AFTER 72 HOURS PRN PRN Reason: nausea Polyethylene Glycol/Electrolytes (Miralax*) 17 gm PO 0800,2100 PRN PRN Reason: CONSTIPATION Scopolamine (Transderm-Scop 1.5 Mg Patch*) 1 patch TRANSDERM Q72H PRN PRN Reason: nausea Vital Signs - 8 hr 08/05/18 08/05/18 08/05/18 04:22 07:53 08:18 Temperature 98.0 F Pulse Rate 67 Respiratory 16 18 Rate Blood Pressure 155/69 163/55 (mmHg) O2 Sat by Pulse 97 Oximetry 08/05/18 08/05/18 08/05/18 10:12 10:13 10:32 Temperature Pulse Rate Respiratory 18 Rate Blood Pressure 173/57 (mmHg) O2 Sat by Pulse 95 Oximetry Oxygen Devices in Use Now: None Appearance: Alert, in recliner chair with both legs elevated. In good spirits. Looks comfortable. Eyes: No Scleral Icterus Extremities: No Edema, No Clubbing, Cyanosis, - Skin: No Rash or Ulcers, No Nodules or Sclerosis, - Neurological: Alert and Oriented x 3, NL Sensation Result Diagrams: 08/05/18 05:18 08/04/18 06:02 Assess/Plan/Problems-Billing Assessment: Patient is a 72yo female with a PMH for HTN, OA who is S/P LTKA and is doing well. Patient had post-operative bradycardia which has resolved. - Patient Problems (1) HTN (hypertension) Current Visit: Yes Status: Acute Code(s): I10 - ESSENTIAL (PRIMARY) HYPERTENSION SNOMED Code(s): 14519328 Comment: Amlodipine 5 mg daily started 08/05/18. Continue metprolol at home dose. (2) Hypothyroidism Current Visit: Yes Status: Acute Code(s): E03.9 - HYPOTHYROIDISM, UNSPECIFIED SNOMED Code(s): 41410593 Comment: - Continue Synthroid (3) Post-operative state Current Visit: Yes Status: Acute Code(s): Z98.890 - OTHER SPECIFIED POSTPROCEDURAL STATES SNOMED Code(s): 91950702 Comment: - Management per primary team. - H/H decreased to an expected degree. Received 30 ml lactulose 08/04, will give PEG 34 gm 08/04 and start 17 gm bid. Conisder 300 ml mag citrate 9.16 if no BM. (4) Constipation Current Visit: Yes Status: Acute Code(s): K59.00 - CONSTIPATION, UNSPECIFIED SNOMED Code(s): 77400954 Comment: Resolved after laxatives. Using less opiods, will change PEG to PRN. Status and Disposition: Inpatient.
[2018-08-05 17:16] LABS: EGFR Non-African American 74.6 (>60)
[2018-08-06] MEDS: Acetaminophen TAB* 325 MG PO SCH (03:20)
[2018-08-06 05:42] LABS: Hematocrit 33 % (35-47); Hemoglobin 11.1 g/dl (12.0-16.0); Platelet Count 159 10^3/ul (150-450)
[2018-08-06 05:47] LABS: INR 2.91 (0.77-1.02)
[2018-08-06] MEDS: Levothyroxine TAB* 112 MCG TAB PO SCH (05:54)
[2018-08-06] MEDS ORDERED: Acetaminophen TAB* 325 MG PO SCH (08:00)
[2018-08-06] MEDS: Vitamin THERAPEUTIC TAB PO SCH (08:17)
[2018-08-06] MEDS: amLODIPine TAB* 5 MG PO SCH (08:18)
[2018-08-06] MEDS: Metoprolol Succinate XL TAB* 50 MG PO SCH (08:18)
[2018-08-06] MEDS: Docusate CAP* 100 MG PO SCH (08:18)
[2018-08-06] MEDS: oxyCODONE/Acetamin 5/325 MG* TAB PO PRN (08:18)
[2018-08-06] MEDS: Magnesium Hydroxide LIQ* 30 ML UDC PO SCH (08:23)
--- NOTE | 2018-08-06 11:01 | PN ---
Progress Note - Progress Note Date of Service: 08/06/18 SOAP: Subjective: [] Patient seen and examined at bedside. She feels well and desires DC home. Denies chest pain, shortness of breath, dizziness, nausea, LLE pain. Objective: [] General: Well appearing, NAD LLE: Left knee dressing changed. Incision CDI without erythema or discharge. Thigh is soft. DF/PF intact. Sensation intact distally. Capillary refill less than two seconds distally BL calves edematous which is baseline without erythema, tenderness or palpable cords Assessment: []S/P left total knee Plan: []WBAT PT/OT Warfarin 4 mg today DC home Vital Signs Temp 98.3 F 08/06/18 07:12 Pulse 70 08/06/18 07:12 Resp 18 08/06/18 10:52 BP 135/50 08/06/18 07:12 Pulse Ox 98 08/06/18 07:12 Intake & Output 08/05/18 08/06/18 08/06/18 18:59 06:59 18:59 Intake Total 680 850 Output Total 500 700 Balance 180 150 Intake: Oral 680 850 Output: Urine 500 700 Other: Estimated Void Medium Medium # Voids 2 Laboratory Last Values Hgb 11.1 g/dl (12.0-16.0) L 08/06/18 05:11 Hct 33 % (35-47) L 08/06/18 05:11 Plt Count 159 10^3/ul (150-450) 08/06/18 05:11 MPV 10.0 um3 (7.4-10.4) 08/06/18 05:11 INR (Anticoag Therapy) 2.91 (0.77-1.02) H 08/06/18 05:11 Sodium 134 mmol/L (135-145) L 08/05/18 16:47 Potassium 4.4 mmol/L (3.5-5.0) 08/05/18 16:47 Chloride 99 mmol/L (101-111) L 08/05/18 16:47 Carbon Dioxide 30 mmol/L (22-32) 08/05/18 16:47 Anion Gap 5 mmol/L (2-11) 08/05/18 16:47 BUN 13 mg/dL (6-24) 08/05/18 16:47 Creatinine 0.76 mg/dL (0.51-0.95) 08/05/18 16:47 Est GFR ( Amer) 90.3 (>60) 08/05/18 16:47 Est GFR (Non-Af Amer) 74.6 (>60) 08/05/18 16:47 BUN/Creatinine Ratio 17.1 (8-20) 08/05/18 16:47 Glucose 107 mg/dL (70-100) H 08/05/18 16:47 Calcium 8.7 mg/dL (8.6-10.3) 08/05/18 16:47
[2018-08-06 13:56] VITALS: BP 142/58
--- NOTE | 2018-08-07 08:41 | DS ---
DISCHARGE SUMMARY: DATE OF ADMISSION: 08/02/18 DATE OF DISCHARGE: 08/06/18 DATE OF OPERATION: 08/02/18 PROVIDER: Dr. Ursula Black.* (DICTATED BY ROSA ISELA AVILA) HANDHOLE MACHINE OPERATOR: ROSA ISELA Moya PREOPERATIVE DIAGNOSIS: Severe end-stage degenerative osteoarthritis of the left knee joint. OPERATIVE PROCEDURE: Left total knee arthroplasty. HISTORY: Ms. Vernon is a 72-year-old female with years of increasingly severe left knee pain. She failed conservative management and elected to undergo a left total knee arthroplasty. HOSPITAL COURSE: Ms. Vernon was admitted to [facility] on 08/02/18. She underwent a left total knee arthroplasty without complication. She recovered briefly on the PACU and was transferred to the short-stay surgical unit in stable condition. She was also seen by our hospitalist service during her stay. On postop day 1 she was alert, oriented, in no acute distress. Dressing was clean, dry, and intact without surrounding erythema. Dorsiflexion and plantarflexion intact. Calves soft and nontender. Distally she had 2+ pitting edema bilaterally. Capillary refill less than 2 seconds distally. Lauro wraps applied to lower extremities. On postop day 2, again well-appearing in no acute distress. Due to hypertension, the patient was started on amlodipine 5 mg daily with continuation of metoprolol home dose. On 08/06/18, the patient was well-appearing in no acute distress. Left knee dressing was changed. Incision clean, dry, and intact without erythema or discharge. Thigh was soft. Dorsiflexion and plantarflexion intact. Sensation intact distally. Capillary refill less than 2 seconds distally. Calves were bilaterally edematous which is baseline without erythema, tenderness, or palpable cords. Vital Signs: 98.3, pulse 70, respiratory rate 18, blood pressure 135/50, pulse ox 98, hemoglobin 11.1, hematocrit 33, INR 2.91. Sodium 134, potassium 4.4. MEDICATIONS AT DISCHARGE: 1. Metoprolol tartrate 1.5 tabs p.o. q. p.m. of 50 mg tablets. 2. Lasix 20 mg p.o. q.a.m. p.r.n. 3. Multivitamin. 4. Levothyroxine 112 mcg p.o. q.a.m. 5. Cetirizine 10 mg p.o. once p.r.n. 6. Amlodipine 5 mg daily. 7. Docusate 100 mg p.o. b.i.d. 8. Percocet 5/325 one to two tabs every 4 to 6 hours as needed for pain, max daily dose of 10. 9. Warfarin 2 mg tabs 0 to 5 tabs, daily dose depends on INR. 10. Acetaminophen 650 mg q.4 hours p.r.n. for pain or fever. DISCHARGE PLAN: The patient will be weightbearing as tolerated. Okay to shower postop day 3. Home nurse to do wound checks and blood draws. Coumadin dosing 08/06/18 4 mg, 08/07/18 2 mg, 08/08/18 4 mg. Recheck INR for further dosing instructions on 08/09/18. Pain control with Percocet 5/325 one to two tabs by mouth every 4 to 6 hours as needed for pain, max of 10 tabs per day. Followup with Dr. Black in 10 to 14 days, call for an appointment. Amlodipine 5 mg daily for hypertension. You will need to follow up with your primary care provider regarding your blood pressure within the next week. ROSA ISELA AVILA [id number]/CPS #: [id number]
== END 2018-08-06 14:35 | disposition home health service (06) | DRG 470 ==
LOC: AA 08-02 06:27 → SSU 08-02 13:34
PROVIDERS: ADMIT Orthopaedic Surgery Adult Reconstructive Orthopaedic Surgery; ATTEND Orthopaedic Surgery Adult Reconstructive Orthopaedic Surgery
PROC: 0SRD0J9 Replacement of Left Knee Joint with Synthetic Substitute, Cemented, Open Approach (ICD-10-PCS; principal; 2018-08-02 08:00)
DX: M17.12 Unilateral primary osteoarthritis, left knee (principal); I10 Essential (primary) hypertension; J45.909 Unspecified asthma, uncomplicated; E03.9 Hypothyroidism, unspecified; F32.9 Major depressive disorder, single episode, unspecified; R60.0 Localized edema; Z96.651 Presence of right artificial knee joint; R32 Unspecified urinary incontinence; M25.762 Osteophyte, left knee; M25.462 Effusion, left knee; K05.10 Chronic gingivitis, plaque induced; L20.9 Atopic dermatitis, unspecified; E66.9 Obesity, unspecified; K59.00 Constipation, unspecified; R00.1 Bradycardia, unspecified; Z79.01 Long term (current) use of anticoagulants; Z80.41 Family history of malignant neoplasm of ovary; Z80.8 Family history of malignant neoplasm of other organs or systems; Z68.38 Body mass index [BMI] 38.0-38.9, adult; Z88.8 Allergy status to other drugs, medicaments and biological substances; Z90.710 Acquired absence of both cervix and uterus; Z72.89 Other problems related to lifestyle; Z78.0 Asymptomatic menopausal state; Z81.1 Family history of alcohol abuse and dependence; Z81.8 Family history of other mental and behavioral disorders
CPT/HCPCS: 36415; 80048; 85014; 85018; 85049; 85610; 88305; 88311; 97530; A9270-GY; C1776; G8978-GP-CJ; G8978-GP-CL; G8979-GP-CI; G8987-GO-CK; G8988-GO-CI; J0360; J0690; J1200; J1650; J2250; J2270; J2405; J2795; J3010

== ENCOUNTER → 2019-09-17 | Day surgery (SDC) | payer MEDICARE ==
[~2019-09-17] MED LIST: Buffered Lidocaine 1% SYRIN* 1 ML/SYRINGE INTRADERM ONE; Cyclopentolate 1% OPTH.SOL* 2 ML BTL ONE; Ketorolac 0.5% OPHTH (NF) 0.5 % 5 ML BTL ONE; Lidocaine 1% MPF ** 5 ML VIAL ONE; Midazolam* 1 MG/ML 2 ML VIAL (2 MG) ONE; Neomycin/Polymy/Dex OPHTH.OIN* 3.5 GM ONE; Phenylephrine OPHTH SOL 2.5%* 2 ML ONE; Tetracaine 0.5% OPTH.SOL 4 ML* 1 DROP BTL ONE; Tropicamide 1% OPTH.SOL* BTL ONE
[2019-09-17 11:54] VITALS: BP 151/65
--- NOTE | 2019-09-17 23:34 | OP ---
DATE OF OPERATION: 09/17/19 [facility] DATE OF : 43 SURGEON: Dr. Keshawn Petersen. ISSUING OPERATOR: None. ANESTHESIA: Topical with intravenous sedation. PRE-OP DIAGNOSIS: Cataract, left eye. POST-OP DIAGNOSIS: Cataract, left eye. OPERATIVE PROCEDURE: Phacoemulsification and cataract extraction with posterior chamber intraocular lens implant, left eye. COMPLICATIONS: None. BLOOD LOSS: None. DESCRIPTION OF PROCEDURE: The patient was brought to the operating room and received a small amount of intravenous sedation. A drop of Tetracaine was placed in her left eye. She was prepped and draped in the usual sterile fashion for ophthalmic surgery and attention was directed to the left eye where a speculum was placed. A paracentesis was created at the 5 o'clock position and 0.1 cc of 1 percent preservative-free Lidocaine was injected into the anterior chamber followed by DisCoVisc. The eye was digitally stabilized while a 2.75 mm keratome was used to create a triplanar clear corneal incision at the 3 o'clock position. A continuous curvilinear capsulorrhexis was created with a cystotome and Utrata forceps. BSS on a cannula was used to hydrodissect the lens from the capsule. Phacoemulsification was performed in a divide-and- conquer technique to create four fragments which were removed. Residual cortical material was removed with irrigation and aspiration. DisCoVisc was used to inflate the capsular bag and an AU00T0 22.0 diopter lens was folded and inserted into the capsular bag. DisCoVisc was removed using irrigation and aspiration. BSS on a cannula was used to hydrate the corneal stroma and seal the wound. At the end of the case the pupil was round and the lens was centered. The eye was of normal pressure and the wound was water tight. The speculum was removed and topical Maxitrol ointment was placed on the surface of the eye. The eye was closed, patched and shielded and the patient was sent to the recovery room in stable condition with post operative instructions and follow-up appointment given. [id number]/CPS #: [id number] MTDHong
== END | disposition home or self-care (01) ==
LOC: OREAST 09:46
PROVIDERS: ATTEND Ophthalmology
DX: H25.12 Age-related nuclear cataract, left eye (principal); I10 Essential (primary) hypertension; E66.9 Obesity, unspecified; E03.9 Hypothyroidism, unspecified; J45.909 Unspecified asthma, uncomplicated; Z79.51 Long term (current) use of inhaled steroids; Z68.41 Body mass index [BMI] 40.0-44.9, adult
CPT/HCPCS: A9270-GY; J2250; V2632

== ENCOUNTER → 2019-09-24 | Day surgery (SDC) | payer MEDICARE ==
[~2019-09-24] MED LIST changes: +fentaNYL* 50 MCG/ML 2 ML VIAL (100 MCG VIAL) ONE
--- NOTE | 2019-09-24 14:42 | OP ---
DATE OF OPERATION: 09/24/19 [facility] DATE OF : 43 SURGEON: Dr. Keshawn Petersen. TELECOMMUNICATOR SUPERVISOR: None. ANESTHESIA: Topical with intravenous sedation. PRE-OP DIAGNOSIS: Cataract, right eye. POST-OP DIAGNOSIS: Cataract, right eye. OPERATIVE PROCEDURE: Phacoemulsification and cataract extraction with posterior chamber intraocular lens implant, right eye. COMPLICATIONS: None. BLOOD LOSS: None. DESCRIPTION OF PROCEDURE: The patient was brought to the operating room and received a small amount of intravenous sedation. A drop of Tetracaine was placed in her right eye. She was prepped and draped in the usual sterile fashion for ophthalmic surgery and attention was directed to the right eye where a speculum was placed. A paracentesis was created at the 11 o'clock position and 0.1 cc of 1 percent preservative-free Lidocaine was injected into the anterior chamber followed by DisCoVisc. The eye was digitally stabilized while a 2.75 mm keratome was used to create a triplanar clear corneal incision at the 9 o'clock position. A continuous curvilinear capsulorrhexis was created with a cystotome and Utrata forceps. BSS on a cannula was used to hydrodissect the lens from the capsule. Phacoemulsification was performed in a divide-and- conquer technique to create four fragments which were removed. Residual cortical material was removed with irrigation and aspiration. DisCoVisc was used to inflate the capsular bag and an AU00T0 22.5 diopter lens was folded and inserted into the capsular bag. DisCoVisc was removed using irrigation and aspiration. BSS on a cannula was used to hydrate the corneal stroma and seal the wound. At the end of the case the pupil was round and the lens was centered. The eye was of normal pressure and the wound was water tight. The speculum was removed and topical Maxitrol ointment was placed on the surface of the eye. The eye was closed, patched and shielded and the patient was sent to the recovery room in stable condition with post operative instructions and follow-up appointment given. [id number]/CPS #: [id number] [place]
[2019-09-24 17:28] VITALS: BP 158/63
== END | disposition home or self-care (01) ==
LOC: OREAST 11:15
PROVIDERS: ATTEND Ophthalmology
DX: H25.11 Age-related nuclear cataract, right eye (principal); E03.9 Hypothyroidism, unspecified; I10 Essential (primary) hypertension; J45.909 Unspecified asthma, uncomplicated; M19.90 Unspecified osteoarthritis, unspecified site
CPT/HCPCS: A9270-GY; J2250; J3010; V2632

== ENCOUNTER 2022-12-04 19:11 | Inpatient (IN) ==
[2022-12-04 20:32] LABS: Urine Appearance Cloudy; Urine Bilirubin Negative (Negative); Urine Blood Negative (Negative); Urine Color Yellow; Urine Glucose Negative (Negative); Urine Ketones Trace (Negative); Urine Nitrite Negative (Negative); Urine Protein Negative (Negative); Urine Specific Gravity 1.012 (1.002-1.030); Urine Urobilinogen Negative (Negative)
[2022-12-04 20:43] LABS: Urine Bacteria Absent (Absent); Urine Red Blood Cell Absent (Absent); Urine Squamous Epithelial Cell Present (Absent); Urine White Blood Cell 3+(>20/hpf) (Absent)
[2022-12-04 22:11] LABS: High Sensitivity Troponin 1 Hr 30 pg/mL (<15)
[2022-12-04] MEDS ORDERED: cefTRIAXone 1 gm/50 mL D5W 1 GM/50 ML BAG IV SCH (23:30)
[2022-12-05] MEDS ORDERED: Senna TAB 8.6 mg TAB PO PRN (00:17)
[2022-12-05] MEDS ORDERED: Polyethylene Glycol 3350 17 GM PACKET PO PRN (00:17)
[2022-12-05] MEDS ORDERED: Albuterol HFA INHALER 8 gm MDI INH PRN (01:00)
[2022-12-05 05:57] LABS: ABS Eosinophils 0.1 10^3/ul (0-0.6); ABS Monocytes 0.9 10^3/ul (0-0.8); ABS Neutrophils 4.8 10^3/ul (1.5-7.7); Eosinophil % 2.1 %; Hematocrit 44 % (35-47); Hemoglobin 14.7 g/dL (12.0-16.0); Lymphocyte % 14.7 %; Mean Corpuscular HGB Conc 33 g/dL (31-36); Mean Corpuscular Hemoglobin 28 pg (27-31); Mean Corpuscular Volume 85 fL (80-97); Mean Platelet Volume 9.9 fL (7.4-10.4); Platelet Count 136 10^3/uL (150-450); Red Blood Count 5.21 10^6 /uL (3.70-4.87); Red Cell Distribution Width 16 % (10-15); White Blood Count 6.9 10^3/uL (3.5-10.8)
[2022-12-05] MEDS ORDERED: hydrALAZINE 20 mg/ml 1 ML Vial IV IV SLOW PU ONE (06:33)
[2022-12-05] MEDS ORDERED: Ondansetron 4 mg VIAL 2 MG/ML 2 ml VIAL IV PRN (06:33)
[2022-12-05 06:38] LABS: Albumin/Globulin Ratio 1.5 (1-3); Calcium 9.2 mg/dL (8.6-10.3); Creatinine, Serum 0.66 mg/dL (0.51-0.95); Globulin 2.6 g/dL (2-4); Potassium 3.9 mmol/L (3.5-5.0); Total Bilirubin 1.2 mg/dL (0.2-1.0); Total Protein 6.6 g/dL (6.4-8.9); eGFR CKD-EPI 89.7 (>60)
[2022-12-05 06:52] LABS: TSH Ultra Thyroid Stim Horm 4.21 mcIU/mL (0.34-5.60)
[2022-12-05] MEDS ORDERED: Al Hydrox/Mg Hydrox/Simet LIQ 30 ML UDC PO PRN (07:20)
[2022-12-05] MEDS: Enoxaparin 40 MG/0.4 ML SYR SUBCUT SCH (09:31)
[2022-12-05] MEDS: Nystatin TOP POWDER 15 GM BTL TOPICAL SCH ×3 (09:32→20:27)
[2022-12-05] MEDS: Multivitamins/Minerals TAB PO SCH (09:32)
[2022-12-05] MEDS: Lidocaine PATCH 5% PATCH TRANSDERM SCH (09:32)
[2022-12-05] MEDS: Cholecalciferol (VIT D3) 1,000 unit TAB PO SCH (09:32)
[2022-12-05] MEDS ORDERED: hydrALAZINE 20 mg/ml 1 ML Vial IV IV SLOW PU PRN (10:10)
[2022-12-05] MEDS ORDERED: NS 0.9% 500 ml BAG 500 ML IV ONE (16:59)
[2022-12-06 06:08] LABS: ABS Basophils 0.1 10^3/ul (0-0.2); ABS Eosinophils 0.1 10^3/ul (0-0.6); ABS Lymphocytes 0.8 10^3/ul (1.0-4.8); ABS Monocytes 0.7 10^3/ul (0-0.8); ABS Neutrophils 4.3 10^3/ul (1.5-7.7); Eosinophil % 1.8 %; Hematocrit 39 % (35-47); Hemoglobin 13.5 g/dL (12.0-16.0); Lymphocyte % 14.1 %; Mean Corpuscular HGB Conc 34 g/dL (31-36); Mean Corpuscular Hemoglobin 28 pg (27-31); Mean Corpuscular Volume 83 fL (80-97); Mean Platelet Volume 9.7 fL (7.4-10.4); Nucleated Red Blood Cells % 0.1; Platelet Count 119 10^3/uL (150-450); Red Blood Count 4.75 10^6 /uL (3.70-4.87); Red Cell Distribution Width 16 % (10-15)
[2022-12-06 06:32] LABS: Calcium 8.7 mg/dL (8.6-10.3); Creatinine, Serum 0.73 mg/dL (0.51-0.95); Magnesium 1.8 mg/dL (1.9-2.7); Potassium 3.4 mmol/L (3.5-5.0); eGFR CKD-EPI 84.1 (>60)
[2022-12-06] MEDS ORDERED: KCL 20 MEQ/100 ML IVPREMIX 20 MEQ/100 ML BAG IV ONE (07:34)
[2022-12-06] MEDS ORDERED: Potassium Chlor 20 meq TAB.ER PO ONE (07:34)
[2022-12-06] MEDS ORDERED: NS 0.9% 1000 ml BAG 1,000 ML IV SCH (07:45)
[2022-12-06] MEDS ORDERED: Pneumococcal Vac 23-Polyvalent IM ONE (09:00)
[2022-12-06] MEDS: Nystatin TOP POWDER 15 GM BTL TOPICAL SCH ×3 (09:00→21:16)
[2022-12-06] MEDS ORDERED: Magnesium Sulfate IV 3 GM in NS 0.9% 100 ml BAG 100 ML IVPB ONE (09:00)
[2022-12-06 09:50] LABS: Osmolality Serum 260 mOsm/kg (275-295)
[2022-12-06] MEDS: Lidocaine PATCH 5% PATCH TRANSDERM SCH (09:53)
[2022-12-06] MEDS: Enoxaparin 40 MG/0.4 ML SYR SUBCUT SCH (09:54)
[2022-12-06] MEDS: Cholecalciferol (VIT D3) 1,000 unit TAB PO SCH (09:54)
[2022-12-06] MEDS: Multivitamins/Minerals TAB PO SCH (09:54)
[2022-12-06 13:00] LABS: Urine Osmo 285 mOsm/kg (150-1150)
[2022-12-06 19:00] LABS: Creatinine, Serum 0.67 mg/dL (0.51-0.95); Potassium 3.9 mmol/L (3.5-5.0); eGFR CKD-EPI 89.4 (>60)
[2022-12-06] MEDS: Ampicillin ADVAN 2 GM in NS 0.9% 100 ml BAG 100 ML IVPB SCH (21:15)
[2022-12-07] MEDS: Ampicillin ADVAN 2 GM in NS 0.9% 100 ml BAG 100 ML IVPB SCH ×4 (01:01→20:08)
[2022-12-07 05:48] LABS: Hematocrit 44 % (35-47); Hemoglobin 14.6 g/dL (12.0-16.0); Mean Corpuscular HGB Conc 33 g/dL (31-36); Mean Corpuscular Hemoglobin 28 pg (27-31); Mean Corpuscular Volume 85 fL (80-97); Mean Platelet Volume 9.9 fL (7.4-10.4); Platelet Count 126 10^3/uL (150-450); Red Blood Count 5.17 10^6 /uL (3.70-4.87); Red Cell Distribution Width 16 % (10-15); White Blood Count 5.7 10^3/uL (3.5-10.8)
[2022-12-07 06:03] LABS: Calcium 8.8 mg/dL (8.6-10.3); Creatinine, Serum 0.67 mg/dL (0.51-0.95); Magnesium 2.3 mg/dL (1.9-2.7); Potassium 3.7 mmol/L (3.5-5.0); eGFR CKD-EPI 89.4 (>60)
[2022-12-07] MEDS ORDERED: Dextran 70/Hypromellose Tears Eye Drops 15 ml BTL (for Artificials Tears) BOTH EYES PRN (08:47)
[2022-12-07] MEDS: Multivitamins/Minerals TAB PO SCH (09:00)
[2022-12-07] MEDS: Enoxaparin 40 MG/0.4 ML SYR SUBCUT SCH (10:33)
[2022-12-07] MEDS: Cholecalciferol (VIT D3) 1,000 unit TAB PO SCH (10:33)
[2022-12-07] MEDS: Lidocaine PATCH 5% PATCH TRANSDERM SCH (10:33)
[2022-12-07] MEDS: Nystatin TOP POWDER 15 GM BTL TOPICAL SCH ×3 (10:45→20:15)
[2022-12-08] MEDS: Ampicillin ADVAN 2 GM in NS 0.9% 100 ml BAG 100 ML IVPB SCH ×4 (02:36→20:29)
[2022-12-08 07:53] LABS: Calcium 8.9 mg/dL (8.6-10.3); Magnesium 2.1 mg/dL (1.9-2.7); Potassium 3.9 mmol/L (3.5-5.0)
[2022-12-08 07:59] LABS: Creatinine, Serum 0.65 mg/dL (0.51-0.95); eGFR CKD-EPI 90.1 (>60)
[2022-12-08] MEDS: Cholecalciferol (VIT D3) 1,000 unit TAB PO SCH (10:36)
[2022-12-08] MEDS: Enoxaparin 40 MG/0.4 ML SYR SUBCUT SCH (10:36)
[2022-12-08] MEDS: Multivitamins/Minerals TAB PO SCH (10:36)
[2022-12-08] MEDS: Nystatin TOP POWDER 15 GM BTL TOPICAL SCH ×3 (10:36→20:29)
[2022-12-08] MEDS: Lidocaine PATCH 5% PATCH TRANSDERM SCH (10:36)
[2022-12-09] MEDS: Ampicillin ADVAN 2 GM in NS 0.9% 100 ml BAG 100 ML IVPB SCH ×4 (02:17→20:44)
[2022-12-09] MEDS: Enoxaparin 40 MG/0.4 ML SYR SUBCUT SCH (08:18)
[2022-12-09] MEDS: Multivitamins/Minerals TAB PO SCH (08:18)
[2022-12-09] MEDS: Cholecalciferol (VIT D3) 1,000 unit TAB PO SCH (08:18)
[2022-12-09] MEDS: Lidocaine PATCH 5% PATCH TRANSDERM SCH (08:18)
[2022-12-09 08:22] LABS: Creatinine, Serum 0.67 mg/dL (0.51-0.95); Potassium 3.8 mmol/L (3.5-5.0); eGFR CKD-EPI 89.4 (>60)
[2022-12-09] MEDS: Nystatin TOP POWDER 15 GM BTL TOPICAL SCH ×3 (08:36→23:22)
[2022-12-10] MEDS: Ampicillin ADVAN 2 GM in NS 0.9% 100 ml BAG 100 ML IVPB SCH ×4 (01:30→20:21)
[2022-12-10] MEDS: Enoxaparin 40 MG/0.4 ML SYR SUBCUT SCH (08:13)
[2022-12-10] MEDS: Cholecalciferol (VIT D3) 1,000 unit TAB PO SCH (08:13)
[2022-12-10] MEDS: Lidocaine PATCH 5% PATCH TRANSDERM SCH (08:14)
[2022-12-10] MEDS: Multivitamins/Minerals TAB PO SCH (08:14)
[2022-12-10] MEDS: Nystatin TOP POWDER 15 GM BTL TOPICAL SCH ×3 (12:24→21:00)
[2022-12-10] MEDS ORDERED: LORazepam 2 mg VIAL 1 ml IV PUSH ONE (12:45)
[2022-12-10] MEDS ORDERED: Lorazepam PYXIS KEY PRN (12:45)
[2022-12-10] MEDS ORDERED: Morphine 4 MG/ML VIAL (1 ml) IV ONE (13:34)
[2022-12-10 16:03] LABS: Phosphorus 3.4 mg/dL (2.5-5.0)
[2022-12-11 06:55] LABS: Creatinine, Serum 0.7 mg/dL (0.51-0.95); Magnesium 2.1 mg/dL (1.9-2.7); Phosphorus 3.6 mg/dL (2.5-5.0); Potassium 3.9 mmol/L (3.5-5.0); eGFR CKD-EPI 88.5 (>60)
[2022-12-11] MEDS: Multivitamins/Minerals TAB PO SCH (10:41)
[2022-12-11] MEDS: Lidocaine PATCH 5% PATCH TRANSDERM SCH (10:41)
[2022-12-11] MEDS: Cholecalciferol (VIT D3) 1,000 unit TAB PO SCH (10:41)
[2022-12-11] MEDS: Enoxaparin 40 MG/0.4 ML SYR SUBCUT SCH (10:47)
[2022-12-11] MEDS: Nystatin TOP POWDER 15 GM BTL TOPICAL SCH ×3 (10:47→20:22)
[2022-12-11] MEDS ORDERED: hydrALAZINE 20 mg/ml 1 ML Vial IV IV SLOW PU ONE (11:15)
[2022-12-11] MEDS ORDERED: Morphine 2 MG/ML SYRINGE IV ONE (16:49)
[2022-12-12] MEDS ORDERED: Morphine 2 MG/ML SYRINGE IV ONE (02:30)
[2022-12-12 07:35] LABS: Calcium 9.1 mg/dL (8.6-10.3); Creatinine, Serum 0.65 mg/dL (0.51-0.95); eGFR CKD-EPI 90.1 (>60)
[2022-12-12] MEDS: Cholecalciferol (VIT D3) 1,000 unit TAB PO SCH (09:42)
[2022-12-12] MEDS: Multivitamins/Minerals TAB PO SCH (09:45)
[2022-12-12] MEDS: Enoxaparin 40 MG/0.4 ML SYR SUBCUT SCH (09:46)
[2022-12-12] MEDS: Nystatin TOP POWDER 15 GM BTL TOPICAL SCH ×3 (10:06→22:27)
[2022-12-12] MEDS ORDERED: Lorazepam PYXIS KEY PRN (11:25)
[2022-12-12] MEDS ORDERED: LORazepam 2 mg VIAL 1 ml IV PUSH ONE (11:26)
[2022-12-12] MEDS: Lidocaine PATCH 5% PATCH TRANSDERM SCH (11:30)
[2022-12-13] MEDS ORDERED: hydrALAZINE 20 mg/ml 1 ML Vial IV IV SLOW PU ONE (03:25)
[2022-12-13] MEDS: Lidocaine PATCH 5% PATCH TRANSDERM SCH ×2 (09:49→14:36)
[2022-12-13] MEDS: Cholecalciferol (VIT D3) 1,000 unit TAB PO SCH (09:50)
[2022-12-13] MEDS: Multivitamins/Minerals TAB PO SCH (09:50)
[2022-12-13] MEDS: Enoxaparin 40 MG/0.4 ML SYR SUBCUT SCH (09:50)
[2022-12-13] MEDS: Nystatin TOP POWDER 15 GM BTL TOPICAL SCH ×3 (09:54→20:17)
[2022-12-13] MEDS ORDERED: Carbidopa/Levodop 25/100 MG TAB PO SCH (14:00)
[2022-12-13] MEDS: Carbidopa/Levodop 25/100 MG TAB PO SCH (20:16)
[2022-12-14 07:02] VITALS: BP 173/96
[2022-12-14] MEDS: Carbidopa/Levodop 25/100 MG TAB PO SCH (08:23)
[2022-12-14] MEDS: Cholecalciferol (VIT D3) 1,000 unit TAB PO SCH (08:23)
[2022-12-14] MEDS: Lidocaine PATCH 5% PATCH TRANSDERM SCH (08:24)
[2022-12-14] MEDS: Nystatin TOP POWDER 15 GM BTL TOPICAL SCH (08:24)
[2022-12-14] MEDS: Enoxaparin 40 MG/0.4 ML SYR SUBCUT SCH (08:24)
[2022-12-14] MEDS: Multivitamins/Minerals TAB PO SCH (08:24)
[2022-12-14 10:03] LABS: Rapid COVID-19 Molecular Undetected (Undetected)
== END 2022-12-14 12:10 | DRG 690 ==
LOC: ED 19:11 → EDHOLD 19:11 → SUATTDRO 12-05 00:17 → MEDTELE 12-05 10:31 → SUATTDRO 12-07 12:19 → MED 12-10 18:41
PROVIDERS: ADMIT Internal Medicine; ATTEND Hospitalist

== ENCOUNTER 2023-01-18 10:16 | Inpatient (IN) ==
[2023-01-18 11:15] LABS: Hematocrit 36 % (35-47); Hemoglobin 11.6 g/dL (12.0-16.0); Mean Corpuscular HGB Conc 32 g/dL (31-36); Mean Corpuscular Hemoglobin 28 pg (27-31); Mean Corpuscular Volume 88 fL (80-97); Mean Platelet Volume 9.2 fL (7.4-10.4); Platelet Count 102 10^3/uL (150-450); Red Blood Count 4.08 10^6 /uL (3.70-4.87); Red Cell Distribution Width 17 % (10-15); White Blood Count 8.9 10^3/uL (3.5-10.8)
[2023-01-18] MEDS ORDERED: Heparin 5000 UNITS/ML 1 mL VIAL ONE ×2 (11:21→11:30)
[2023-01-18] MEDS ORDERED: Heparin DRIP 25,000 UNITS BAG 25,000 UNITS/500 ML BAG ONE (11:22)
[2023-01-18] MEDS: Heparin DRIP 25,000 UNITS BAG 25,000 UNITS/500 ML BAG IV SCH (11:23)
[2023-01-18] MEDS: Heparin 5000 UNITS/ML 1 mL VIAL IV SCH (11:32)
[2023-01-18 11:37] LABS: Activated Partial Thrombo Time 33.2 seconds (26.0-38.0); INR 1.63 (0.88-1.18)
[2023-01-18 11:41] LABS: ABS Lymphocytes 1.1 10^3/ul (1.0-4.8); ABS Monocytes 0.5 10^3/ul (0-0.8); ABS Neutrophils 7.3 10^3/ul (1.5-7.7); Eosinophil % 0.5 %; Lymphocyte % 12.3 %
[2023-01-18 11:41] LABS: Urine Appearance Cloudy; Urine Bilirubin Negative (Negative); Urine Blood 1+ (Negative); Urine Color Amber; Urine Glucose Negative (Negative); Urine Ketones Negative (Negative); Urine Nitrite Positive (Negative); Urine Protein 1+(30 mg/dL) (Negative); Urine Specific Gravity 1.018 (1.002-1.030); Urine Urobilinogen Positive (Negative)
[2023-01-18] MEDS ORDERED: Norepinephrine 16MCG/ML BAGD5W 4,000 MCG/250 ML BAG IV ONE (11:43)
[2023-01-18 11:44] LABS: Urine Bacteria 3+ (Absent); Urine Red Blood Cell 2+(6-10/hpf) (Absent); Urine Squamous Epithelial Cell Present (Absent); Urine White Blood Cell 3+(>20/hpf) (Absent)
[2023-01-18] MEDS: Norepinephrine 16MCG/ML BAGD5W 4,000 MCG/250 ML BAG IV SCH (11:48)
[2023-01-18 12:04] LABS: ALT 44 U/L (7-52); Albumin 2.5 g/dL (3.2-5.2); Albumin/Globulin Ratio 1.2 (1-3); Alkaline Phosphatase 71 U/L (35-149); Blood Urea Nitrogen 76 mg/dL (6-24); CO2 Carbon Dioxide 23 mmol/L (22-32); Calcium 8.4 mg/dL (8.6-10.3); Chloride 98 mmol/L (101-111); Cholesterol 94 mg/dL; Creatinine, Serum 1.84 mg/dL (0.51-0.95); Globulin 2.1 g/dL (2-4); Glucose 185 mg/dL (70-100); HDL Cholesterol 20.3 mg/dL; LDL Cholesterol 54 mg/dL; Sodium 132 mmol/L (135-145); Total Protein 4.6 g/dL (6.4-8.9); Triglycerides 101 mg/dL; eGFR CKD-EPI 27.7 (>60)
[2023-01-18 12:05] LABS: Anion Gap 11 mmol/L (2-11)
[2023-01-18] MEDS ORDERED: Heparin 2 UNITS/ML IVPREMIX 3,000 UNIT/1,500 ML BAG IV ONE (12:16)
[2023-01-18] MEDS ORDERED: Iodixanol 320 (CONTRAST) 100 ML SDV ONE (12:16)
[2023-01-18] MEDS ORDERED: Lidocaine 1% VIAL 10 MG/ML VIAL 30 ML ONE (12:16)
[2023-01-18] MEDS ORDERED: fentaNYL 100 mcg/2 ml 50 MCG/ML VIAL ONE (12:28)
[2023-01-18] MEDS ORDERED: Midazolam 5 mg/5 ml VIAL 1 mg/ml 5 ml VIAL (5 mg) ONE (12:28)
[2023-01-18] MEDS ORDERED: Heparin 1,000 UNIT/ML 10 ml (10,000 UNITS) CATHLAB/DIALYSIS ONE (12:58)
[2023-01-18] MEDS ORDERED: NS 0.9% 1000 ml BAG 1,000 ML IV ONE (13:06)
[2023-01-18] MEDS ORDERED: Heparin 2 UNITS/ML IVPREMIX 2,000 UNIT/1,000 ML BAG IV ONE ×2 (13:07→13:25)
[2023-01-18] MEDS ORDERED: Lactated Ringers 1000 ml BAG 1,000 ML IV ONE (13:09)
[2023-01-18 13:32] LABS: Potassium Redraw 3.9 mmol/L (3.5-5.0)
[2023-01-18 13:57] LABS: Creatinine, Serum 1.71 mg/dL (0.51-0.95); eGFR CKD-EPI 30.3 (>60)
[2023-01-18] MEDS ORDERED: fentaNYL 100 mcg/2 ml 50 MCG/ML VIAL IV SLOW PU PRN ×2 (16:48→19:56)
[2023-01-18] MEDS: Pantoprazole VIAL 40 MG VIAL IV SCH (17:19)
[2023-01-18 18:16] LABS: ABS Lymphocytes 0.8 10^3/ul (1.0-4.8); ABS Monocytes 1.4 10^3/ul (0-0.8); ABS Neutrophils 9.4 10^3/ul (1.5-7.7); Hematocrit 40 % (35-47); Hemoglobin 12.7 g/dL (12.0-16.0); Lymphocyte % 6.9 %; Mean Corpuscular HGB Conc 32 g/dL (31-36); Mean Corpuscular Hemoglobin 28 pg (27-31); Mean Corpuscular Volume 89 fL (80-97); Mean Platelet Volume 9.4 fL (7.4-10.4); Platelet Count 118 10^3/uL (150-450); Red Blood Count 4.52 10^6 /uL (3.70-4.87); Red Cell Distribution Width 17 % (10-15); White Blood Count 11.5 10^3/uL (3.5-10.8)
[2023-01-18] MEDS: NS 0.9% 1000 ml BAG 1,000 ML IV SCH (18:17)
[2023-01-18] MEDS ORDERED: Carbidopa/Levodop 25/100 MG TAB PO SCH (21:00)
[2023-01-18 21:12] LABS: Magnesium 2.1 mg/dL (1.9-2.7)
[2023-01-18 21:17] LABS: Phosphorus 4.7 mg/dL (2.5-5.0)
[2023-01-18] MEDS: Chlorhexidine MOUTHWASH 0.12% 15 ML UDC SWISH SPIT SCH (22:04)
[2023-01-19] MEDS ORDERED: Norepinephrine 16MCG/ML BAGD5W 4,000 MCG/250 ML BAG IV ONE (00:09)
[2023-01-19] MEDS ORDERED: Heparin 5000 UNITS/ML 1 mL VIAL ONE ×2 (00:09→00:10)
[2023-01-19] MEDS: Heparin 5000 UNITS/ML 1 mL VIAL IV SCH (00:20)
[2023-01-19] MEDS: NS 0.9% 1000 ml BAG 1,000 ML IV SCH ×2 (00:58→09:00)
[2023-01-19] MEDS: Norepinephrine 16MCG/ML BAGD5W 4,000 MCG/250 ML BAG IV SCH ×3 (01:30→20:33)
[2023-01-19] MEDS ORDERED: Dextran 70/Hypromellose Tears Eye Drops 15 ml BTL (for Artificials Tears) BOTH EYES PRN (02:51)
[2023-01-19 05:06] LABS: Hematocrit 35 % (35-47); Hemoglobin 11.5 g/dL (12.0-16.0); Mean Corpuscular HGB Conc 33 g/dL (31-36); Mean Corpuscular Hemoglobin 28 pg (27-31); Mean Corpuscular Volume 87 fL (80-97); Mean Platelet Volume 9.7 fL (7.4-10.4); Platelet Count 116 10^3/uL (150-450); Red Blood Count 4.06 10^6 /uL (3.70-4.87); Red Cell Distribution Width 17 % (10-15); White Blood Count 17.3 10^3/uL (3.5-10.8)
[2023-01-19] MEDS: Heparin DRIP 25,000 UNITS BAG 25,000 UNITS/500 ML BAG IV SCH (05:26)
[2023-01-19] MEDS: Levothyroxine 100 MCG/5 ML VIAL IV SCH (05:58)
[2023-01-19] MEDS ORDERED: Levothyroxine 100 MCG/5 ML VIAL IV SCH (06:00)
[2023-01-19 06:04] LABS: Anion Gap 9 mmol/L (2-11); CO2 Carbon Dioxide 24 mmol/L (22-32); Calcium 7.7 mg/dL (8.6-10.3); Chloride 101 mmol/L (101-111); Sodium 134 mmol/L (135-145)
[2023-01-19 06:10] LABS: Blood Urea Nitrogen 76 mg/dL (6-24); Glucose 137 mg/dL (70-100); eGFR CKD-EPI 28.5 (>60)
[2023-01-19 07:18] LABS: ABS Monocytes 1.7 10^3/ul (0-0.8); ABS Neutrophils 14.6 10^3/ul (1.5-7.7); Eosinophil % 0.1 %; Lymphocyte % 5.6 %; Nucleated Red Blood Cells % 0.1
[2023-01-19 07:28] LABS: Magnesium 1.9 mg/dL (1.9-2.7); Phosphorus 4.6 mg/dL (2.5-5.0); Potassium Redraw 4.7 mmol/L (3.5-5.0)
[2023-01-19] MEDS: Chlorhexidine MOUTHWASH 0.12% 15 ML UDC SWISH SPIT SCH ×3 (09:55→20:31)
[2023-01-19] MEDS ORDERED: Lidocaine 1% MPF 5 ML VIAL INJ ONE (12:09)
[2023-01-19] MEDS: D5LR 1000 ml BAG 1,000 ML IV SCH (12:19)
[2023-01-19] MEDS: cefTRIAXone 1 gm/50 mL D5W 1 GM/50 ML BAG IV SCH (15:18)
[2023-01-19] MEDS: Pantoprazole VIAL 40 MG VIAL IV SCH (20:30)
[2023-01-19] MEDS ORDERED: Metoprolol Tartrate 5 mg VIAL 5 ml VIAL (1 mg/ml) IV ONE ×2 (22:47→23:11)
[2023-01-19 23:05] LABS: Potassium 3.9 mmol/L (3.5-5.0)
[2023-01-19 23:06] LABS: Magnesium 1.9 mg/dL (1.9-2.7)
[2023-01-19] MEDS ORDERED: Metoprolol Tartrate 5 mg VIAL 5 ml VIAL (1 mg/ml) ONE (23:14)
[2023-01-19] MEDS ORDERED: KCL 10 MEQ/50 ML IVPREMIX 10 MEQ/50 ML BAG IV ONE (23:15)
[2023-01-19] MEDS ORDERED: Magnesium Sulfate IV 1GM/100ML 1 GM/100 ML BAG IV ONE (23:15)
[2023-01-19] MEDS ORDERED: Amiodarone 150 mg IVPREMIX 150 MG/100 ML BAG IV ONE (23:52)
[2023-01-20] MEDS ORDERED: .Amiodarone 24HR ONLY IV Protocol Order Note IV ONE (01:51)
[2023-01-20] MEDS ORDERED: Amiodarone 150 mg IVPREMIX 150 MG/100 ML BAG IV ONE (01:51)
[2023-01-20] MEDS ORDERED: Amiodarone 360 MG IVPREMIX 360 MG/200 ML BAG IV SCH ×2 (02:05→08:05)
[2023-01-20 03:24] LABS: Urine Benzodiazepine Screen Presumptive Positive (None Detect); Urine Buprenorphine Screen None Detected (None Detect); Urine Cannabinoids Screen None Detected (None Detect); Urine Fentanyl Screen None Detected (None Detect); Urine Hydrocodone Screen None Detected (None Detect); Urine Opiates Screen None Detected (None Detect)
[2023-01-20 04:30] LABS: ABS Eosinophils 0.1 10^3/ul (0-0.6); ABS Lymphocytes 1.1 10^3/ul (1.0-4.8); ABS Monocytes 1.5 10^3/ul (0-0.8); ABS Neutrophils 9.4 10^3/ul (1.5-7.7); Eosinophil % 0.9 %; Hematocrit 29 % (35-47); Hemoglobin 9.3 g/dL (12.0-16.0); Lymphocyte % 9.4 %; Mean Corpuscular HGB Conc 33 g/dL (31-36); Mean Corpuscular Hemoglobin 28 pg (27-31); Mean Corpuscular Volume 86 fL (80-97); Mean Platelet Volume 9.4 fL (7.4-10.4); Platelet Count 101 10^3/uL (150-450); Red Blood Count 3.35 10^6 /uL (3.70-4.87); Red Cell Distribution Width 17 % (10-15); White Blood Count 12.1 10^3/uL (3.5-10.8)
[2023-01-20] MEDS: Levothyroxine 100 MCG/5 ML VIAL IV SCH (04:55)
[2023-01-20 05:05] LABS: Potassium 3.6 mmol/L (3.5-5.0)
[2023-01-20 06:15] LABS: Calcium 7.3 mg/dL (8.6-10.3); Creatinine, Serum 1.47 mg/dL (0.51-0.95); Magnesium 2.1 mg/dL (1.9-2.7); eGFR CKD-EPI 36.3 (>60)
[2023-01-20] MEDS: Chlorhexidine MOUTHWASH 0.12% 15 ML UDC SWISH SPIT SCH (08:48)
[2023-01-20] MEDS ORDERED: Calcium Gluconate 2 GM in NS 0.9% 100 ml BAG 100 ML IV ONE (09:00)
[2023-01-20] MEDS: KCL 20 MEQ/100 ML IVPREMIX 20 MEQ/100 ML BAG IV SCH ×2 (09:01→11:24)
[2023-01-20] MEDS: D5LR 1000 ml BAG 1,000 ML IV SCH (09:16)
[2023-01-20] MEDS ORDERED: Pantoprazole VIAL 40 MG VIAL IV SCH (10:00)
[2023-01-20] MEDS ORDERED: Acetaminophen IV 1 GM/100ML 1,000 MG/100 ML BAG IV PRN (10:46)
[2023-01-20] MEDS ORDERED: Acetaminophen IV 1 GM/100ML 1,000 MG/100 ML BAG IV ONE (10:52)
[2023-01-20 13:01] LABS: Hematocrit 24 % (35-47); Hemoglobin 7.8 g/dL (12.0-16.0)
[2023-01-20] MEDS: cefTRIAXone 1 gm/50 mL D5W 1 GM/50 ML BAG IV SCH (13:23)
[2023-01-20 16:12] VITALS: BP 105/45
[2023-01-20] MEDS ORDERED: Morphine 10 MG/ML VIAL (1 ml) IV ONE (16:43)
[2023-01-20] MEDS ORDERED: Lorazepam PYXIS KEY PRN (16:54)
[2023-01-20] MEDS ORDERED: LORazepam 2 mg VIAL 1 ml ONE (17:05)
[2023-01-20] MEDS ORDERED: Lorazepam PYXIS KEY ONE (17:05)
[2023-01-20] MEDS: LORazepam 2 mg VIAL 1 ml IV PUSH SCH ×2 (17:11→18:08)
[2023-01-20] MEDS ORDERED: Morphine PCA ADULT 5 MG/ML 30 ML PCA SCH (17:30)
== END 2023-01-20 18:40 | disposition expired | DRG 175 ==
LOC: ED 10:16 → ICU 10:16 → ED 10:16 → ICU 12:20 → ED 12:21 → UNDODEPER 12:21 → ICU 16:23
PROVIDERS: ADMIT Internal Medicine Critical Care Medicine; ATTEND Internal Medicine Critical Care Medicine